=== PATIENT | male | born 1970 | race Caucasian/White ===

== ENCOUNTER 2016-10-11 01:24 | Emergency (ER) | payer OTHER ==
[~2016-10-11] VITALS: Ht 185.4 cm; Wt 91.6 kg
[2016-10-11] MEDS ORDERED: OMEP40CA2 PO (01:41)
[2016-10-11] MEDS ORDERED: DERMABOND TOPICAL SKIN ADHESIVE TOP ONE (02:15)
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
[2016-10-11 03:30] VITALS: BP 118/65
== END 2016-10-11 04:09 | disposition home or self-care (01) ==
LOC: EDBD 01:24 → M ED 03:15
DX: S01.81XA Laceration without foreign body of other part of head, initial encounter (principal); Y04.0XXA Assault by unarmed brawl or fight, initial encounter; Y92.89 Other specified places as the place of occurrence of the external cause; Y93.89 Activity, other specified; Y99.0 Civilian activity done for income or pay

== ENCOUNTER 2017-01-03 22:03 | Emergency (ER) | payer OTHER ==
[~2017-01-03] VITALS: Ht 190.5 cm; Wt 113.6 kg
[2017-01-03 22:03] VITALS: BP 116/72
[~2017-01-03 22:03] MED LIST: OMEP40CA2 PO
[2017-01-03] MEDS ORDERED: FLUORESCEIN OPHTH 1 MG STRIP OD ONE (22:15)
[2017-01-03] MEDS ORDERED: TETRACAINE 0.5% OPHTH SOLN 4ML OU ONE (22:15)
[2017-01-03] MEDS ORDERED: NORCO 5/325MG TABLET (BULK FOR ED) PO ONE (22:45)
[2017-01-03] MEDS ORDERED: CIPROFLOXACIN 0.3% OPHTH SOLN 2.5ML OD ONE (22:45)
== END 2017-01-03 22:49 | disposition home or self-care (01) ==
LOC: M ED 22:03
DX: S05.01XA Injury of conjunctiva and corneal abrasion without foreign body, right eye, initial encounter (principal); Z72.0 Tobacco use; W55.89XA Other contact with other mammals, initial encounter; Y92.099 Unspecified place in other non-institutional residence as the place of occurrence of the external cause; Y93.89 Activity, other specified; Y99.9 Unspecified external cause status

== ENCOUNTER 2018-03-08 20:41 | Emergency (ER) | payer OTHER ==
[2018-03-08 21:17] LABS: BASO # 0.1 10^3/uL (0.0-0.2); BASO % 0.5 % (0.0-1.0); EOS # 0.1 10^3/uL (0.0-0.50); EOS % 0.6 % (0.0-3.0); HEMATOCRIT 40.2 % (42.0-52.0); HEMOGLOBIN 13.7 g/dl (13.5-17.5); IMMATURE GRANULOCYTE % 0.4 % (0-3.0); LYMPH # 2.4 10^3/uL (1.5-4.5); LYMPH % 18.8 % (24.0-44.0); MEAN CORPUSCULAR HEMOGLOBIN 30.3 pg (27.0-33.0); MEAN CORPUSCULAR HGB CONC 34.1 g/dl (32.0-36.5); MEAN CORPUSCULAR VOLUME 88.9 fl (80.0-96.0); MONO # 1.1 10^3/uL (0.0-0.8); MONO % 8.5 % (0.0-5.0); NEUTROPHILS % 71.2 % (36.0-66.0); PLATELET COUNT, AUTOMATED 223 10^3/uL (150-450); RED BLOOD COUNT 4.52 10^6/uL (4.30-6.10); RED CELL DISTRIBUTION WIDTH 13.6 % (11.5-14.5); WHITE BLOOD COUNT 12.6 10^3/uL (4.0-10.0)
[2018-03-08 21:34] LABS: ALBUMIN 3.4 GM/DL (3.2-5.2); ALBUMIN/GLOBULIN RATIO 1.13 (1.00-1.93); ALKALINE PHOSPHATASE 56 U/L (45-117); ALT/SGPT 22 U/L (12-78); ANION GAP 7 MEQ/L (8-16); AST/SGOT 17 U/L (7-37); BILIRUBIN,DIRECT < 0.1 MG/DL (0.0-0.2); BILIRUBIN,TOTAL 0.3 MG/DL (0.2-1.0); BLOOD UREA NITROGEN 11 MG/DL (7-18); CALCIUM LEVEL 7.8 MG/DL (8.5-10.1); CARBON DIOXIDE LEVEL 26 MEQ/L (21-32); CHLORIDE LEVEL 110 MEQ/L (98-107); CPK CREATINE PHOSPHOKINASE 265 U/L (39-308); CREATININE FOR GFR 1.21 MG/DL (0.70-1.30); GLOMERULAR FILTRATION RATE > 60.0 (>60); GLUCOSE, FASTING 85 MG/DL (70-100); LIPASE 198 U/L (73-393); MB/CK RELATIVE INDEX 0.83 (< OR =4); SODIUM LEVEL 143 MEQ/L (136-145); TOTAL PROTEIN 6.4 GM/DL (6.4-8.2)
[2018-03-08 21:43] LABS: INR 0.92; PROTHROMBIN TIME 12.5 SECONDS (12.1-14.4)
[2018-03-08 21:44] LABS: PARTIAL THROMBOPLASTIN TIME 25.8 SECONDS (25.4-37.6)
[2018-03-08] MEDS ORDERED: ISOVUE-370 76% 100ML VIAL (Q9967) As Ordered (21:56)
[2018-03-08] MEDS: NITROGLYCERIN 0.4 MG SUBL TABLET SL (23:09)
[2018-03-09 02:07] LABS: CPK CREATINE PHOSPHOKINASE 419 U/L (39-308); MB/CK RELATIVE INDEX 1.96 (< OR =4); TROPONIN I 2.14 NG/ML (< 0.10)
[2018-03-09] MEDS: CLOPIDOGREL 300 MG TAB (PLAVIX) PO (02:18)
[2018-03-09] MEDS: HEPARIN SOD (PORCINE) 5000 UNITS/ML VIAL IV (02:27)
[2018-03-09] MEDS: HEPARIN DRIP 25,000 UNITS in APPROPRIATE DILUENT 1 EA IV (02:28)
[2018-03-09] MEDS: METOPROLOL TART 25 MG TABLET PO (02:35)
== END 2018-03-09 03:08 | disposition short-term general hospital (02) ==
LOC: M ED 03-09 03:08
DX: I21.4 Non-ST elevation (NSTEMI) myocardial infarction (principal); K21.9 Gastro-esophageal reflux disease without esophagitis; Z72.0 Tobacco use; Z79.899 Other long term (current) drug therapy
CPT/HCPCS: Q9967

== ENCOUNTER 2018-06-02 10:41 | Outpatient (RCR) | payer OTHER ==
--- NOTE | 2018-05-14 13:22 | CARECAPL ---
Assessment Account #s: Initial Assessment General Diagnoses: Stent Allergies: Coded Allergies: No Known Allergies (Unverified , 10/11/16) Date Entered Program: May 14, 2018 Risk strat for cardiac event: Low Exercise Date: May 14, 2018 Assessment: Initial Assessment Exercise Prescription Plan TO EDUCATE AND BUILD STAMINA VIA MONITORED EXERCISE Modalities initiated: Cardio-Strider (METS=2.4/RPE=2), Nustep (METS=2.7/RPE=2), Arm Aerometer (METS=2.7/RPE=2) Frequency: 3 Duration (Minutes) 30-60 minutes total exercise a day. 10-15 work intervals in minutes. 5 MINUTES NEEDED rest intervals in minutes. Functional Capacity Goal Sustained Metabolic Equivalent of a task (MET) goal of 4.75-5.75 for 15-20 minutes. Intensity: 3-Moderate Progression (METS) Increase by: METS every: sessions Angina with ex: No Target Heart Rate +35-40 BASED ON BETA SHOAIB THERAPY Resistance Training: Yes Weight (pounds): 2 Reps: 12-15 Hypertension: Yes Hypertension controlled with: Medication Resting 139/90 Peak Exercise BP 126/90 Medications Scheduled Aspirin (Aspir-81), 81 MG PO DAILY, (Reported) Atorvastatin Calcium (Lipitor), 80 MG PO DAILY, (Reported) Clopidogrel Bisulfate (Clopidogrel), 75 MG PO DAILY, (Reported) Metoprolol Succinate (Metoprolol Succinate ER), 25 MG PO DAILY, (Reported) Omeprazole (Omeprazole), 40 MG PO DAILY, (Reported) Miscellaneous Medications Nitroglycerin (Nitroglycerin), 0.4 MG SL, (Reported) Current BP 108/84 Med Change: No Intervention Home exercise: Type (WALKING/WEIGHTS), Frequency (3-5 TIMES PER WEEK), Duration (30-60 MINUTES) Resistance Training: Yes Education: Self pulse, Ex safety, S/S to report, Low NA diet, BP medication, R PE Scale, Equipment orientation, warm up/cool down, Understand BP, Physical Active Target Goals Individual exercise Rx (1) BP 140/90 or 130/80 if DM or CKD (1) Aerobic active 30+min 5 days per week (1) Nutrition Date: May 14, 2018 Assessment: Initial Assessment Lipid- med/supplement LIPITOR 80 MG DAILY Med Change: No Diabetes Diabetes: No Monitor Blood Sugar at home: No Medication Change: No Blood sugar in range: No Weight Management Weight (lbs): 198.8 Height (inches): 73 Waist Circumference (Inches): 43 BMI: 27.7 Special Diet: low salt, low-fat Alcohol: special Alcohol Type: beer (MAYBE 6 PACK A YEAR) Diet Access Tool: Rate your plate Score: 54 Current Weight (pounds): 198.8 Intervention Reset Merchandiser Consult: No Nurse/patient discussion: Yes Diet Class: Yes Referral to Diabetes education: No Referral to lipid clinic: No Referral to weight mangement p: No Education Eating Healthy Target goal LDL-C<100 if triglycerides are >200 Non-HDL-C should be <130 (1) LDL-C<70 for high risk patients (4) HbA1c<7% (1) BMI<25 Waist cir<40in M/<35in F (1) Education Date: May 14, 2018 Assessment: Initial Assessment Learning Barriers: ready Knowledge Test Score: 10 Family Support: Yes Tobacco use: Yes Tobacco Use Quit set date: Jun 08, 2018 Cigarettes smoked per day: 6 (HAS CUT DOWN, PLANS TO QUIT 06/08/18) Smokeless tobacco: No Intervention Referral to smoking cessation: No Individual education and couns: Yes Tobacco Adjunct: No Education class schedule given: No Attended education classes: No Education: tobacco triggers, CAD, Risk factors, med compliance, cardiac A&P, Angina S/S, Sexuality Target Goals Complete cessation of tobacco use (1). Psychosocial Date: May 14, 2018 Assessment: Initial Assessment Psych Test (Initial/Discharge) Tool Used: CESD Score: 3 Intervention Physician Consult: No Physician Referral: No Med Change: No Stress Management Class: No Uses Stress Management Skills: Yes Education Education: Coping Techniques, S/S depression, Relaxation Techniques Target Goal Assess presence or absence of depression using a valid screening tool (1). Maximize coping skills (2). Positive support system (2). Patient/Program Goal Preventative Medication: Yes Aspirin, Yes Clopidogrel, Yes Beta blockade, Yes Statin/OTR lipid Lowering Fall Risk Assess: Yes (NOT FALL RISK) Provider Assessment Session Number: 1 Jerel Novoa RN May 14, 2018 13:22
[~2018-06-02 10:41] MED LIST changes: +ASPI81TA85 PO; +CLOP75TA2 PO; +LIPI80TA PO; +METO1TAB32 PO; +NITR0.4S14 SL
== END 2018-06-07 ==
LOC: M CR 10:41
PROVIDERS: ATTEND Internal Medicine Cardiovascular Disease
DX: I25.2 Old myocardial infarction (principal); Z95.5 Presence of coronary angioplasty implant and graft

== ENCOUNTER 2018-07-05 15:02 | Outpatient (RCR) | payer OTHER ==
--- NOTE | 2018-06-10 14:01 | CARECAPL ---
Assessment Account #s: Re-Assessment I General Diagnoses: Stent Date of event: Mar 09, 2018 Physician: Gorge Brizuela Allergies: Coded Allergies: No Known Allergies (Unverified , 10/11/16) Date Entered Program: May 14, 2018 Risk strat for cardiac event: Low Exercise Date: Jun 10, 2018 Assessment: Re-Assessment I Exercise Prescription Modalities initiated: Treadmill, Cardio-Strider, Nustep, Arm Aerometer, Dumbells, Recumbent Bike Duration (Minutes) minutes total exercise a day. work intervals in minutes. rest intervals in minutes. Functional Capacity Goal Sustained Metabolic Equivalent of a task (MET) goal of for minutes. Progression (METS) Increase by: METS every: sessions Angina with ex: No Weight (pounds): 3 Reps: 8-12 Medications Scheduled Aspirin (Aspir-81), 81 MG PO DAILY, (Reported) Atorvastatin Calcium (Lipitor), 80 MG PO DAILY, (Reported) Clopidogrel Bisulfate (Clopidogrel), 75 MG PO DAILY, (Reported) Metoprolol Succinate (Metoprolol Succinate ER), 25 MG PO DAILY, (Reported) Omeprazole (Omeprazole), 40 MG PO DAILY, (Reported) Miscellaneous Medications Nitroglycerin (Nitroglycerin), 0.4 MG SL, (Reported) Current BP 114/82 Med Change: No Intervention Home exercise: Type (join local gym, walking, hand weights), Frequency (4-6 times per week), Duration (30-60 minutes) Resistance Training: Yes Education: Self pulse, Ex safety, S/S to report, Low NA diet, BP medication, RPE Scale, Equipment orientation, warm up/cool down, Understand BP, Physical Active Education Goals Met: Yes Target Goals Individual exercise Rx (1) BP 140/90 or 130/80 if DM or CKD (1) Aerobic active 30+min 5 days per week (1) Nutrition Date: Jun 10, 2018 Assessment: Re-Assessment I Med Change: No Current Weight (pounds): 198 Weight Goal to maintain Intervention Serger Consult: Yes Nurse/patient discussion: Yes Education Eating Healthy Education Goals Met: Yes Target goal LDL-C<100 if triglycerides are >200 Non-HDL-C should be <130 (1) LDL-C<70 for high risk patients (4) HbA1c<7% (1) BMI<25 Waist cir<40in M/<35in F (1) Education Date: Jun 10, 2018 Assessment: Re-Assessment I Intervention Education: CAD, Risk factors, med compliance, cardiac A&P, Angina S/S, Sexuality Education Goals Met: Yes Target Goals Complete cessation of tobacco use (1). Psychosocial Date: Jun 10, 2018 Assessment: Re-Assessment I Stress Management Class: Yes Uses Stress Management Skills: Yes Education Education: Coping Techniques, S/S depression, Relaxation Techniques Education Goals Met: Yes Target Goal Assess presence or absence of depression using a valid screening tool (1). Maximize coping skills (2). Positive support system (2). Provider Assessment Session Number: 5 Provider Assessment: No changes Karishma José RN Jun 10, 2018 14:01
--- NOTE | 2018-07-07 14:28 | CARECAPL ---
Assessment Account #s: Re-Assessment II General Diagnoses: Stent Date of event: Mar 09, 2018 Physician: Gorge Brizuela Allergies: Coded Allergies: No Known Allergies (Unverified , 10/11/16) Date Entered Program: May 14, 2018 Risk strat for cardiac event: Low Exercise Date: Jul 07, 2018 Assessment: Re-Assessment II Exercise Prescription Modalities initiated: Treadmill, Cardio-Strider, Nustep, Arm Aerometer, Dumbells, Recumbent Bike Frequency: 1-2 Duration (Minutes) 6-15minutes total exercise a day. 30-60 work intervals in minutes. rest intervals in minutes. Functional Capacity Goal Sustained Metabolic Equivalent of a task (MET) goal of for minutes. Intensity: 3-Moderate Progression (METS) Increase by: METS every: sessions Angina with ex: No Weight (pounds): 3 Reps: 8-12 Medications Scheduled Aspirin (Aspir-81), 81 MG PO DAILY, (Reported) Atorvastatin Calcium (Lipitor), 80 MG PO DAILY, (Reported) Clopidogrel Bisulfate (Clopidogrel), 75 MG PO DAILY, (Reported) Metoprolol Succinate (Metoprolol Succinate ER), 25 MG PO DAILY, (Reported) Omeprazole (Omeprazole), 40 MG PO DAILY, (Reported) Miscellaneous Medications Nitroglycerin (Nitroglycerin), 0.4 MG SL, (Reported) Current BP 120/80 Med Change: No Intervention Home exercise: Type (walking, join local gym, hand weights), Frequency (5-7), Duration (30-60 minutes) Resistance Training: Yes Education: Self pulse, Ex safety, S/S to report, Low NA diet, BP medication, RPE Scale, Equipment orientation, warm up/cool down, Understand BP, Physical Active Education Goals Met: Yes Target Goals Individual exercise Rx (1) BP 140/90 or 130/80 if DM or CKD (1) Aerobic active 30+min 5 days per week (1) Nutrition Date: Jul 07, 2018 Assessment: Re-Assessment II Medication Change: No Current Weight (pounds): 198 Intervention Nurse/patient discussion: Yes Dietary Goals better choices Education Eating Healthy Target goal LDL-C<100 if triglycerides are >200 Non-HDL-C should be <130 (1) LDL-C<70 for high risk patients (4) HbA1c<7% (1) BMI<25 Waist cir<40in M/<35in F (1) Education Date: Jul 07, 2018 Assessment: Re-Assessment II Intervention Education class schedule given: Yes Attended education classes: Yes Education: CAD, Risk factors, med compliance, cardiac A&P, Angina S/S, Sexuality Target Goals Complete cessation of tobacco use (1). Psychosocial Date: Jul 07, 2018 Assessment: Re-Assessment II Med Change: No Stress Management Class: Yes Uses Stress Management Skills: Yes Education Education: Coping Techniques, S/S depression, Relaxation Techniques Target Goal Assess presence or absence of depression using a valid screening tool (1). Maximize coping skills (2). Positive support system (2). Provider Assessment Session Number: 7 Provider Assessment: No changes Karishma José RN Jul 07, 2018 14:28
== END 2018-07-08 ==
LOC: M CR 15:02
PROVIDERS: ATTEND Internal Medicine Cardiovascular Disease
DX: Z95.5 Presence of coronary angioplasty implant and graft (principal)

== ENCOUNTER 2018-07-16 08:55 | Outpatient (RCR) | payer OTHER | END 2018-08-05 | LOC: M CR 08:55 | PROVIDERS: ATTEND Internal Medicine Cardiovascular Disease | DX: Z95.5 Presence of coronary angioplasty implant and graft (principal) ==

== ENCOUNTER 2018-07-24 00:02 | Emergency (ER) | payer OTHER ==
[~2018-07-24] VITALS: Ht 185.4 cm; Wt 91.8 kg
[2018-07-24 00:10] VITALS: BP 131/86
[2018-07-24 00:31] LABS: CARBOXYHEMOGLOBIN 4.8 % (0.0-1.5); VENOUS BASE EXCESS 2.4 (-2.0-2.0); VENOUS HCO3 29.7 MEQ/L (23.0-27.0); VENOUS O2 SATURATION 51.5 % (60.0-80.0); VENOUS PARTIAL PRESSURE CO2 56.5 mmHg (38.0-50.0); VENOUS PARTIAL PRESSURE O2 29.3 mmHg (30.0-50.0); VENOUS PH 7.339 UNITS (7.330-7.430); VENOUS STANDARD HCO3 25.3 MEQ/L; VENOUS TOTAL CO2 31.5 MEQ/L (24.0-28.0)
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
== END 2018-07-24 01:13 | disposition home or self-care (01) ==
LOC: M ED 00:02 → EDBD 00:02 → M ED 01:13
DX: J70.5 Respiratory conditions due to smoke inhalation (principal); I25.10 Atherosclerotic heart disease of native coronary artery without angina pectoris; I25.2 Old myocardial infarction; Z79.899 Other long term (current) drug therapy; Z79.82 Long term (current) use of aspirin; F17.210 Nicotine dependence, cigarettes, uncomplicated

== ENCOUNTER → 2018-12-14 | Outpatient (CLI) | payer OTHER ==
[~2018-12-14] MED LIST changes: +E-Z-GAS II EFFERVESCENT PACKET (SODIUM BICARB./CITRIC ACID/SIMETHICONE) As Ordered ONE; +E-Z-HD 98% w/w 340GM SUSP BTL As Ordered ONE; +E-Z-PAQUE 96% w/w SUSP 176GM BTL As Ordered ONE
--- NOTE | 2018-12-15 20:35 | REP ---
Examination Requested: Esophagram Barium Swallow Reason For Exam/Comment: Dysphasia, gastroesophageal reflux disease Esophagram: The procedure was performed ABEBA Truong, under the direct supervision of Dr. Lockhart. The images were reviewed with Dr. Lockhart. A single PA chest x-ray is submitted as a r d intern film. The superior mediastinal structures are midline. The heart size is within normal limits. The lungs are clear. Liquid barium and gas producing granules were given in the erect position as well as liquid barium in the prone oblique position, in order to perform a double contrast esophagram examination. Oral and pharyngeal stages of the examination were unremarkable. Esophageal transport is efficient and there is no esophagitis, stricture, or mucosal ring noted. During the course of the exam a small amount of barium was noted along the anterior aspect of the trachea, indicating the patient aspirated barium during the exam without a cough response. There is a hiatal hernia noted. Gastroesophageal reflux as visualized to the level of the chente. Impression: 1. Aspiration without a cough response. 2. Hiatal hernia. 3. Gastroesophageal reflux to the level of the chente. 0.8 minutes of fluoroscopy time was utilized for this procedure. Some fluoroscopic images are performed with last image hold technology. These images require no additional radiation. Reviewed by ABEBA Arreola 12/14/2018 04:36 P Electronically Signed by Ethan Lockhart MD 12/15/2018 08:26 P
== END ==
LOC: M RAD 08:42
PROVIDERS: ATTEND Physician Assistant Medical
DX: R13.10 Dysphagia, unspecified (principal); K21.9 Gastro-esophageal reflux disease without esophagitis

== ENCOUNTER 2019-03-04 12:46 | Day surgery (SDC) | payer OTHER ==
[~2019-03-04] VITALS: Ht 185.4 cm; Wt 91.1 kg
[~2019-03-04 12:46] MED LIST changes: +CHAN1PAK13 PO; -E-Z-GAS II EFFERVESCENT PACKET (SODIUM BICARB./CITRIC ACID/SIMETHICONE) As Ordered ONE; -E-Z-HD 98% w/w 340GM SUSP BTL As Ordered ONE; -E-Z-PAQUE 96% w/w SUSP 176GM BTL As Ordered ONE; +NS 1,000 ML IV ONE
[2019-03-04] MEDS ORDERED: PROPOFOL 200 MG/20 ML VIAL As Ordered ONE (13:43)
[2019-03-04] MEDS ORDERED: LIDOCAINE 2% INJ 100 MG/5 ML SDV (FOR ANES.) As Ordered ONE (13:43)
--- NOTE | 2019-03-04 14:00 | ROOR ---
Patient Name: Arnol Rosa Procedure Date: 03/04/2019 1:46 PM Date of : 1970 Age: 48 Room: [facility] Gender: Male Note Status: Finalized Procedure: Upper GI endoscopy Indications: Dysphagia, Heartburn, Failure to respond to medical treatment Providers: Dannie FREEMAN MD Referring MD: ANTONIO BRANDT JR, MD Requesting Provider: Medicines: Monitored Anesthesia Care Complications: No immediate complications. Procedure: Pre-Anesthesia Assessment: - The heart rate, respiratory rate, oxygen saturations, blood pressure, adequacy of pulmonary ventilation, and response to care were monitored throughout the procedure. The Endoscope was introduced through the mouth, and advanced to the second part of duodenum. The upper GI endoscopy was accomplished without difficulty. The patient tolerated the procedure well. Findings: Non-severe esophagitis was found in the lower third of the esophagus. A medium-sized hiatal hernia was present. The entire examined stomach was normal. The examined duodenum was normal. Impression: - Mild reflux esophagitis. GE junction at 35 cm. - Medium-sized hiatal hernia. - Normal stomach. - Normal examined duodenum. - No specimens collected. Recommendation: - Continue present medications. - As Pantoprazole appears to be ineffective, We will need to consider returning to Omeprazole 40 mg twice a day. (alternatively a trial on Dexilant may be considered) --To be discussed. - My office will call you in next few days with results of discussion. Dannie Freeman MD Dannie FREEMAN MD 03/04/2019 2:00:14 PM Electronically signed by Dannie FREEMAN MD Number of Addenda: 0 Note Initiated On: 03/04/2019 1:46 PM Estimated Blood Loss: Estimated blood loss: none.
[2019-03-04 14:20] VITALS: BP 105/71
== END 2019-03-04 14:41 | disposition home or self-care (01) ==
LOC: M OPP 12:46
PROVIDERS: ATTEND Internal Medicine Gastroenterology
DX: K20.9 Esophagitis, unspecified (principal); K44.9 Diaphragmatic hernia without obstruction or gangrene; R12 Heartburn; R13.10 Dysphagia, unspecified; F17.210 Nicotine dependence, cigarettes, uncomplicated; I25.2 Old myocardial infarction; Z79.82 Long term (current) use of aspirin; Z79.899 Other long term (current) drug therapy; Z95.5 Presence of coronary angioplasty implant and graft

== ENCOUNTER 2020-01-13 09:45 | Day surgery (SDC) | payer OTHER ==
[~2020-01-13 09:45] MED LIST changes: -ASPI81TA85 PO; +ASPI81TA86 PO; -NS 1,000 ML IV ONE; -OMEP40CA2 PO; +OMEP40CA97 PO
[2020-01-13] MEDS ORDERED: LIDOCAINE 2% 100MG/5ML SDV (FOR ANES.) As Ordered ONE (10:07)
[2020-01-13] MEDS ORDERED: propofoL 200 MG/20 ML VIAL As Ordered ONE (10:07)
[2020-01-13] MEDS ORDERED: GLUCAGON INJ 1MG VIAL As Ordered ONE (10:55)
--- NOTE | 2020-02-15 11:28 | ROOR ---
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 Procedure: Pre-Anesthesia Assessment: - The heart rate, respiratory rate, oxygen saturations, blood pressure, adequacy of pulmonary ventilation, and response to care were monitored throughout the procedure. The Colonoscope was introduced through the anus and advanced to the cecum, identified by appendiceal orifice and ileocecal valve. The colonoscopy was performed without difficulty. The patient tolerated the procedure well. The quality of the bowel preparation was good. Findings: The perianal and digital rectal examinations were normal. Five sessile polyps were found in the rectum, sigmoid colon and hepatic flexure. The polyps were diminutive in size. These polyps were removed with a cold snare. Resection and retrieval were complete. A 8 mm polyp was found in the mid sigmoid colon. The polyp was semi-sessile. The polyp was removed with a hot snare. Resection and retrieval were complete. To prevent bleeding after the polypectomy, one hemostatic clip was successfully placed. Mild sigmoid diverticulosis and small internal hemorrhoids. Impression: - Five diminutive polyps in the rectum, in the sigmoid colon and at the hepatic flexure, removed with a cold snare. Resected and retrieved. - One 8 mm polyp in the mid sigmoid colon, removed with a hot snare. Resected and retrieved. Clip was placed. - Mild sigmoid diverticulosis and small internal hemorrhoids. Recommendation: - Repeat colonoscopy in 3 years for surveillance. - Resume Plavix (clopidogrel) at prior dose in 3 days. (Thursday01/16/20) Dannie Freeman MD Dannie FREEMAN MD 01/13/2020 11:24:19 AM Number of Addenda: 0 Note Initiated On: 01/13/2020 10:01 AM Estimated Blood Loss: Estimated blood loss: none.
== END 2020-01-13 11:56 | disposition home or self-care (01) ==
LOC: M SDC 09:45
PROVIDERS: ATTEND Internal Medicine Gastroenterology
DX: Z12.11 Encounter for screening for malignant neoplasm of colon (principal); K62.1 Rectal polyp; D12.3 Benign neoplasm of transverse colon; K57.30 Diverticulosis of large intestine without perforation or abscess without bleeding; K64.8 Other hemorrhoids; K21.9 Gastro-esophageal reflux disease without esophagitis; Z79.01 Long term (current) use of anticoagulants; Z79.82 Long term (current) use of aspirin; Z79.899 Other long term (current) drug therapy
CPT/HCPCS: 45385; 88305; J1610

== ENCOUNTER 2020-10-30 18:27 | Emergency (ER) | payer OTHER ==
[~2020-10-30] VITALS: Ht 185.4 cm; Wt 91.8 kg
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
[2020-10-30 19:51] LABS: BASO # 0.1 10^3/uL (0.0-0.2); BASO % 0.6 % (0.0-1.0); EOS # 0.1 10^3/uL (0.0-0.5); EOS % 1.5 % (0.0-3.0); HEMATOCRIT 42.3 % (42.0-52.0); HEMOGLOBIN 14.1 g/dl (13.5-17.5); LYMPH # 3.6 10^3/uL (1.5-5.0); LYMPH % 38.5 % (24.0-44.0); MEAN CORPUSCULAR HEMOGLOBIN 29.6 pg (27.0-33.0); MEAN CORPUSCULAR HGB CONC 33.3 g/dl (32.0-36.5); MEAN CORPUSCULAR VOLUME 88.9 fl (80.0-96.0); MONO # 0.9 10^3/uL (0.0-0.8); MONO % 9.8 % (2.0-8.0); NEUTROPHILS # 4.6 10^3/uL (1.5-8.5); NEUTROPHILS % 49.3 % (36.0-66.0); PLATELET COUNT, AUTOMATED 241 10^3/uL (150-450); RED BLOOD COUNT 4.76 10^6/uL (4.30-6.10); WHITE BLOOD COUNT 9.4 10^3/uL (4.0-10.0)
[2020-10-30 21:08] LABS: ALBUMIN 3.9 GM/DL (3.2-5.2); ALT/SGPT 27 U/L (12-78); BILIRUBIN,DIRECT 0.2 MG/DL (0.0-0.2); BILIRUBIN,TOTAL 0.5 MG/DL (0.2-1.0); BLOOD UREA NITROGEN 11 MG/DL (7-18); CALCIUM LEVEL 9.1 MG/DL (8.5-10.1); CARBON DIOXIDE LEVEL 25 MEQ/L (21-32); CHLORIDE LEVEL 111 MEQ/L (98-107); CK-MB VALUE MASS 2.4 NG/ML (<3.6); CPK CREATINE PHOSPHOKINASE 485 U/L (39-308); CREATININE FOR GFR 1.07 MG/DL (0.70-1.30); GLOMERULAR FILTRATION RATE > 60.0 (>56); GLUCOSE, FASTING 88 MG/DL (70-100); LIPASE 119 U/L (73-393); MB/CK RELATIVE INDEX 0.49 (< OR =4); SODIUM LEVEL 142 MEQ/L (136-145); TOTAL PROTEIN 6.7 GM/DL (6.4-8.2); TROPONIN I < 0.02 NG/ML (< 0.10)
[2020-10-30] MEDS ORDERED: ISOVUE-370 76% 100ML VIAL As Ordered ONE (21:15)
--- NOTE | 2020-10-30 21:41 | ECGEPIP ---
[facility] - ED Test Date: 2020-10-30 Pat Name: DEWAYNE PEREZ Department: Room: - Gender: Male Rn Informatics: : 1970 Requested By: YOMI Lyles Order Number: [id number] Reading MD: Isabel Cornejo Measurements Intervals [place] Rate: 78 P: -3 ME: 150 QRS: 15 QRSD: 78 T: 16 QT: 360 QTc: 410 Interpretive Statements Normal sinus rhythm with sinus arrhythmia delayed r progression increased rate 03/09/18 Electronically Signed on 10-30-2020 21:40:53 EDT by Isabel Cornejo
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
[2020-10-30 23:00] VITALS: BP 126/75
== END 2020-10-30 23:09 | disposition home or self-care (01) ==
LOC: M ED 18:27
DX: S20.212A Contusion of left front wall of thorax, initial encounter (principal); W22.8XXA Striking against or struck by other objects, initial encounter; Y92.89 Other specified places as the place of occurrence of the external cause; I25.10 Atherosclerotic heart disease of native coronary artery without angina pectoris; Z79.899 Other long term (current) drug therapy; Z79.82 Long term (current) use of aspirin; Z79.01 Long term (current) use of anticoagulants; F17.210 Nicotine dependence, cigarettes, uncomplicated
CPT/HCPCS: 36415; 71101; 71260; 74177; 80048; 80076; 82550; 82553; 83690; 84484; 85025; 93005; 99284; Q9967

== ENCOUNTER 2020-12-05 18:28 | Emergency (ER) | payer OTHER ==
[~2020-12-05] VITALS: Ht 185.4 cm; Wt 91.3 kg
[~2020-12-05 18:28] MED LIST changes: +OMEP40CA4 PO; -OMEP40CA97 PO
[2020-12-05] MEDS ORDERED: methocarbamoL 750 MG TAB PO ONE (20:15)
[2020-12-05] MEDS ORDERED: NAPROXEN 250 MG TAB PO ONE (20:15)
[2020-12-05] MEDS ORDERED: METH-1164 PO (20:22)
[2020-12-05] MEDS ORDERED: NAPR-837 PO (20:22)
[2020-12-05 20:53] VITALS: BP 122/72
== END 2020-12-05 20:54 | disposition home or self-care (01) ==
LOC: M ED 18:28
DX: M54.5 Low back pain (principal); Z79.899 Other long term (current) drug therapy; Z79.82 Long term (current) use of aspirin; Z79.01 Long term (current) use of anticoagulants

== ENCOUNTER → 2022-03-12 | Outpatient (REF) | payer OTHER ==
[~2022-03-12] MED LIST changes: +METH-1164 PO; +NAPR-837 PO
[2022-03-12 13:48] LABS: APPEARANCE, URINE MANUAL CLEAR (CLEAR); BILIRUBIN, URINE MANUAL NEGATIVE (NEGATIVE); COLOR, URINE MANUAL YELLOW (YELLOW); GLUCOSE, URINE (UA) MANUAL NEGATIVE (NEGATIVE); KETONE, URINE MANUAL NEGATIVE (NEGATIVE); LEUKOCYTE ESTERASE, URINE MAN NEGATIVE (NEGATIVE); NITRITE, URINE MANUAL NEGATIVE (NEGATIVE); PROTEIN, URINE MANUAL TRACE mg/dL (NEGATIVE); UROBILINOGEN, URINE MANUAL NORMAL (NORMAL)
[2022-03-12 13:49] LABS: BLOOD URINE MANUAL NEGATIVE (NEGATIVE)
[2022-03-12 14:14] LABS: BACTERIA, URINE MOD AMOUNT; MUCUS, URINE MOD AMOUNT (NEGATIVE)
[2022-03-12 14:15] LABS: HYALINE CAST, URINE NONE SEEN /lpf (0-1); RBC, URINE NONE SEEN /hpf (0-3); SQUAMOUS EPITHELIAL CELL URINE NONE SEEN /hpf (SMALL AMT); WBC, URINE 0-1 /hpf (0-3)
== END ==
LOC: M SMT 13:05
PROVIDERS: ATTEND Nurse Practitioner Women's Health
DX: R35.0 Frequency of micturition (principal)

== ENCOUNTER → 2022-03-18 | Outpatient (CLI) | payer OTHER | LOC: M WUC 15:40 | PROVIDERS: ATTEND Nurse Practitioner Women's Health | DX: R97.20 Elevated prostate specific antigen [PSA] (principal) ==

== ENCOUNTER → 2022-04-01 | Outpatient (REF) | payer OTHER | LOC: M SMT 13:01 | PROVIDERS: ATTEND Urology | DX: C61 Malignant neoplasm of prostate (principal) ==

== ENCOUNTER → 2022-06-19 | Outpatient (CLI) | payer OTHER ==
[~2022-06-19] MED LIST changes: +ALLE4TAB11 PO; +BAYE81TA10 PO; +FLOM0.4C39 PO; +MELA3TAB30 PO
[2022-06-19 16:47] LABS: BLOOD UREA NITROGEN 13 MG/DL (9-23); CARBON DIOXIDE LEVEL 30 MMOL/L (20-31); CHLORIDE LEVEL 104 MMOL/L (98-107); CREATININE FOR GFR 1.17 MG/DL (0.70-1.30); GLOMERULAR FILTRATION RATE > 60.0 (>56); GLUCOSE, FASTING 112 MG/DL (60-100); POTASSIUM SERUM 3.7 MMOL/L (3.5-5.1); SODIUM LEVEL 140 MMOL/L (136-145)
[2022-06-19 16:56] LABS: HEMATOCRIT 44.7 % (42.0-52.0); HEMOGLOBIN 14.7 g/dl (13.5-17.5); MEAN CORPUSCULAR HEMOGLOBIN 30.1 pg (27.0-33.0); MEAN CORPUSCULAR HGB CONC 32.9 g/dl (32.0-36.5); MEAN CORPUSCULAR VOLUME 91.6 fl (80.0-96.0); PLATELET COUNT, AUTOMATED 241 10^3/uL (150-450); RED BLOOD COUNT 4.88 10^6/uL (4.30-6.10); WHITE BLOOD COUNT 10.8 10^3/uL (4.0-10.0)
[2022-06-19 17:08] LABS: INR 0.99; PARTIAL THROMBOPLASTIN TIME 27.8 SECONDS (24.8-34.2); PROTHROMBIN TIME 13.3 SECONDS (12.5-14.5)
== END ==
LOC: M WUC 11:59
PROVIDERS: ATTEND Urology
DX: Z01.818 Encounter for other preprocedural examination (principal); C61 Malignant neoplasm of prostate; N39.0 Urinary tract infection, site not specified; K44.9 Diaphragmatic hernia without obstruction or gangrene

== ENCOUNTER 2022-06-20 19:50 | Emergency (ER) | payer OTHER ==
[~2022-06-20] VITALS: Ht 185.4 cm; Wt 91.8 kg
[2022-06-20] MEDS ORDERED: NITROGLYCERIN 0.4MG SUBL TABLET SL PRN (20:20)
[2022-06-20] MEDS ORDERED: ASPIRIN 81MG CHEW TABLET PO ONE (20:20)
[2022-06-20 20:36] VITALS: BP 115/72
[2022-06-20 20:56] LABS: BASO # 0.1 10^3/uL (0.0-0.2); BASO % 0.5 % (0.0-1.0); EOS # 0.1 10^3/uL (0.0-0.5); EOS % 1.2 % (0.0-3.0); HEMOGLOBIN 14.3 g/dl (13.5-17.5); LYMPH # 3.8 10^3/uL (1.5-5.0); MEAN CORPUSCULAR HEMOGLOBIN 29.7 pg (27.0-33.0); MEAN CORPUSCULAR HGB CONC 33.3 g/dl (32.0-36.5); MEAN CORPUSCULAR VOLUME 89.4 fl (80.0-96.0); MONO # 0.7 10^3/uL (0.0-0.8); MONO % 6.1 % (2.0-8.0); NEUTROPHILS # 7.1 10^3/uL (1.5-8.5); NEUTROPHILS % 59.9 % (36.0-66.0); PLATELET COUNT, AUTOMATED 226 10^3/uL (150-450); RED BLOOD COUNT 4.81 10^6/uL (4.30-6.10); WHITE BLOOD COUNT 11.8 10^3/uL (4.0-10.0)
[2022-06-20 21:07] LABS: INR 0.97; PROTHROMBIN TIME 13.1 SECONDS (12.5-14.5)
[2022-06-20 21:08] LABS: PARTIAL THROMBOPLASTIN TIME 27.7 SECONDS (24.8-34.2)
[2022-06-20] MEDS ORDERED: MORPHINE 2 MG/ML 1ML VIAL IV ONE (21:20)
[2022-06-20 21:21] LABS: CK-MB VALUE MASS < 1.0 NG/ML (<3.6)
[2022-06-20 21:22] LABS: LIPASE 44 U/L (12-53)
[2022-06-20 21:23] LABS: BILIRUBIN,DIRECT 0.1 MG/DL (<0.4)
[2022-06-20 21:25] LABS: THYROID STIMULATING HORMONE 1.725 uIU/ML (0.55-4.78)
[2022-06-20 21:26] LABS: FREE T4 0.94 NG/DL (0.89-1.76)
[2022-06-20 21:28] LABS: ALBUMIN 3.7 G/DL (3.2-5.2); ALKALINE PHOSPHATASE 82 U/L (46-116); ALT/SGPT 23 U/L (7.0-40); AST/SGOT 27 U/L (<34); BILIRUBIN,TOTAL 0.4 MG/DL (0.3-1.2); BLOOD UREA NITROGEN 12 MG/DL (9-23); CALCIUM LEVEL 8.6 MG/DL (8.5-10.1); CARBON DIOXIDE LEVEL 25 MMOL/L (20-31); CHLORIDE LEVEL 108 MMOL/L (98-107); CPK CREATINE PHOSPHOKINASE 135 U/L (46-171); CREATININE FOR GFR 1.06 MG/DL (0.70-1.30); GLOMERULAR FILTRATION RATE > 60.0 (>56); GLUCOSE, FASTING 97 MG/DL (60-100); MB/CK RELATIVE INDEX 0.74 (< OR =4); POTASSIUM SERUM 4.8 MMOL/L (3.5-5.1); SODIUM LEVEL 139 MMOL/L (136-145); TOTAL PROTEIN 6.1 G/DL (5.7-8.2)
[2022-06-20] MEDS ORDERED: ISOVUE-370 76% 100ML VIAL As Ordered ONE (21:50)
[2022-06-20 22:11] LABS: CK-MB VALUE MASS < 1.0 NG/ML (<3.6)
[2022-06-20 22:14] LABS: CPK CREATINE PHOSPHOKINASE 121 U/L (46-171); MB/CK RELATIVE INDEX 0.82 (< OR =4)
[2022-06-20] MEDS ORDERED: GI COCKTAIL 50ML BTL(HYOSCYAMINE/MAALOX/LIDOCAINE VISCOUS)(1:3:1) PO ONE (22:15)
[2022-06-20 23:50] VITALS: BP 107/70
== END 2022-06-21 00:01 | disposition home or self-care (01) ==
LOC: M ED 19:50
DX: K44.9 Diaphragmatic hernia without obstruction or gangrene (principal); I25.10 Atherosclerotic heart disease of native coronary artery without angina pectoris; K21.9 Gastro-esophageal reflux disease without esophagitis; F17.210 Nicotine dependence, cigarettes, uncomplicated; Z79.01 Long term (current) use of anticoagulants; Z79.82 Long term (current) use of aspirin; Z79.899 Other long term (current) drug therapy; Z95.5 Presence of coronary angioplasty implant and graft

== ENCOUNTER → 2022-06-29 | Outpatient (CLI) | payer OTHER | LOC: M LABSMTC 11:15 | PROVIDERS: ATTEND Anesthesiology | DX: Z01.812 Encounter for preprocedural laboratory examination (principal); Z11.52 Encounter for screening for COVID-19 ==

== ENCOUNTER 2022-07-02 07:30 | Inpatient (IN) | payer OTHER ==
[~2022-07-02] VITALS: Ht 185.4 cm; Wt 89.4 kg
[~2022-07-02 07:30] MED LIST changes: +ceFAZolin SOD 2 GM in IV 1 EA IV ONE
[2022-07-02] MEDS ORDERED: fentaNYL 100 MCG/2 ML INJECTION As Ordered ONE (08:35)
[2022-07-02] MEDS ORDERED: MIDAZOLAM INJ 2MG/2ML VIAL As Ordered ONE (08:35)
[2022-07-02] MEDS ORDERED: HYDROmorphone HCL 2MG/ML 1ML VIAL As Ordered ONE (08:35)
[2022-07-02] MEDS ORDERED: ONDANSETRON 4MG 2ML VIAL As Ordered ONE (08:55)
[2022-07-02] MEDS ORDERED: propofoL 200 MG/20 ML VIAL As Ordered ONE ×2 (08:55→13:22)
[2022-07-02] MEDS ORDERED: LIDOCAINE 2% 100MG/5ML SDV (FOR ANES.) As Ordered ONE (08:55)
[2022-07-02] MEDS ORDERED: ROCURONIUM BROMIDE 50MG/5ML VIAL As Ordered ONE ×2 (08:55→14:47)
[2022-07-02] MEDS ORDERED: LR 1,000 ML IV SCH (11:10)
[2022-07-02] MEDS ORDERED: HOME MED LIST COMPLETE! XX SCH (11:15)
[2022-07-02] MEDS ORDERED: HEPARIN SOD (PORCINE) 5000UNITS/ML 1ML VIAL/SYRINGE SQ ONE (11:30)
[2022-07-02] MEDS ORDERED: BUPIVACAINE HCL 0.25% 30ML VIAL As Ordered ONE (12:32)
[2022-07-02] MEDS ORDERED: LIDOCAINE 1% SDV 30ML VIAL As Ordered ONE (12:32)
[2022-07-02] MEDS ORDERED: PERCOCET 5MG/325MG TAB PO PRN (12:55)
[2022-07-02] MEDS ORDERED: ONDANSETRON 4MG 2ML VIAL IV PRN ×2 (12:55→16:40)
[2022-07-02] MEDS ORDERED: ACETAMINOPHEN TAB 650MG DOSE (2X325MG) PO PRN (12:55)
[2022-07-02] MEDS ORDERED: ACETAMINOPHEN 1000MG 100ML IV BAG As Ordered ONE (13:01)
[2022-07-02] MEDS ORDERED: GLYCOPYRROLATE INJ 0.2 MG/ML 2 ML VIAL As Ordered ONE (13:29)
[2022-07-02] MEDS ORDERED: SUGAMMADEX SODIUM 500 MG/5 ML VIAL (BRIDION) As Ordered ONE (13:33)
[2022-07-02] MEDS ORDERED: fentaNYL 100 MCG/2 ML INJECTION IV PRN (16:40)
[2022-07-02] MEDS: oxyCODONE 5MG TAB PO PRN ×2 (17:19→17:50)
[2022-07-02] MEDS ORDERED: KETOROLAC 30 MG/ML 1ML VIAL As Ordered ONE (17:24)
[2022-07-02] MEDS ORDERED: KETOROLAC 30 MG/ML 1ML VIAL IV ONE (17:25)
[2022-07-02 17:29] LABS: HEMATOCRIT 42.6 % (42.0-52.0); HEMOGLOBIN 13.9 g/dl (13.5-17.5); MEAN CORPUSCULAR HEMOGLOBIN 29.7 pg (27.0-33.0); MEAN CORPUSCULAR HGB CONC 32.6 g/dl (32.0-36.5); PLATELET COUNT, AUTOMATED 238 10^3/uL (150-450); RED BLOOD COUNT 4.68 10^6/uL (4.30-6.10); WHITE BLOOD COUNT 12.8 10^3/uL (4.0-10.0)
[2022-07-02 17:58] LABS: BLOOD UREA NITROGEN 14 MG/DL (9-23); CALCIUM LEVEL 8.3 MG/DL (8.5-10.1); CARBON DIOXIDE LEVEL 26 MMOL/L (20-31); CHLORIDE LEVEL 109 MMOL/L (98-107); CREATININE FOR GFR 1.09 MG/DL (0.70-1.30); GLOMERULAR FILTRATION RATE > 60.0 (>56); GLUCOSE, FASTING 116 MG/DL (60-100); POTASSIUM SERUM 4.3 MMOL/L (3.5-5.1); SODIUM LEVEL 141 MMOL/L (136-145)
[2022-07-02 18:00] VITALS: BP 131/76
[2022-07-02 18:30] VITALS: BP 130/75
[2022-07-02] MEDS: NS 1,000 ML IV SCH (18:53)
[2022-07-02 19:00] VITALS: BP 128/76
[2022-07-02 20:04] VITALS: BP 112/75
[2022-07-02] MEDS: OMEPRAZOLE 20MG CAP PO SCH (20:25)
[2022-07-02] MEDS: ceFAZolin SOD 1 GM in D5W MINI-BAG PLUS 50 ML IV SCH (20:25)
[2022-07-02] MEDS: DOCUSATE SODIUM 100MG CAPSULE PO SCH (20:25)
[2022-07-02] MEDS: HEPARIN SOD (PORCINE) 5000UNITS/ML 1ML VIAL/SYRINGE SC SCH (20:38)
[2022-07-02] MEDS: PERCOCET 5MG/325MG TAB PO PRN (20:39)
[2022-07-02 23:00] VITALS: BP 111/67
[2022-07-03 02:21] VITALS: BP 110/69
[2022-07-03] MEDS: PERCOCET 5MG/325MG TAB PO PRN ×4 (02:21→17:14)
[2022-07-03] MEDS: HEPARIN SOD (PORCINE) 5000UNITS/ML 1ML VIAL/SYRINGE SC SCH ×2 (05:27→14:00)
[2022-07-03] MEDS: ceFAZolin SOD 1 GM in D5W MINI-BAG PLUS 50 ML IV SCH (05:28)
[2022-07-03] MEDS: NS 1,000 ML IV SCH (05:28)
[2022-07-03 05:49] VITALS: BP 112/66
[2022-07-03 05:51] LABS: HEMATOCRIT 36.9 % (42.0-52.0); HEMOGLOBIN 12.1 g/dl (13.5-17.5); MEAN CORPUSCULAR HEMOGLOBIN 29.9 pg (27.0-33.0); MEAN CORPUSCULAR HGB CONC 32.8 g/dl (32.0-36.5); MEAN CORPUSCULAR VOLUME 91.1 fl (80.0-96.0); PLATELET COUNT, AUTOMATED 214 10^3/uL (150-450); RED BLOOD COUNT 4.05 10^6/uL (4.30-6.10); WHITE BLOOD COUNT 14.2 10^3/uL (4.0-10.0)
[2022-07-03 06:09] LABS: BLOOD UREA NITROGEN 16 MG/DL (9-23); CALCIUM LEVEL 7.7 MG/DL (8.5-10.1); CARBON DIOXIDE LEVEL 25 MMOL/L (20-31); CHLORIDE LEVEL 108 MMOL/L (98-107); CREATININE FOR GFR 1.07 MG/DL (0.70-1.30); GLOMERULAR FILTRATION RATE > 60.0 (>56); GLUCOSE, FASTING 97 MG/DL (60-100); POTASSIUM SERUM 4.6 MMOL/L (3.5-5.1); SODIUM LEVEL 139 MMOL/L (136-145)
[2022-07-03] MEDS: DOCUSATE SODIUM 100MG CAPSULE PO SCH (08:24)
[2022-07-03] MEDS: OMEPRAZOLE 20MG CAP PO SCH (08:24)
[2022-07-03] MEDS ORDERED: ATORVASTATIN 20 MG TAB PO SCH (09:00)
[2022-07-03] MEDS ORDERED: METOPROLOL SUCC *XL* 25MG TAB (TopROL *XL*) PO SCH (09:00)
[2022-07-03 11:02] VITALS: BP 107/65
[2022-07-03 14:49] VITALS: BP 110/64
[2022-07-03] MEDS ORDERED: COLA100C5 PO (16:28)
[2022-07-03] MEDS ORDERED: CIPR-249 PO (16:28)
[2022-07-03] MEDS ORDERED: PERCOCET PO (16:28)
== END 2022-07-03 17:55 | disposition home or self-care (01) | DRG 708 ==
LOC: M OR 10:24 → M MS5PR 18:00
PROVIDERS: ADMIT Urology; ATTEND Urology
PROC: 8E0W4CZ Robotic Assisted Procedure of Trunk Region, Percutaneous Endoscopic Approach (ICD-10-PCS; 2022-07-02)
PROC: 0VT04ZZ Resection of Prostate, Percutaneous Endoscopic Approach (ICD-10-PCS; principal; 2022-07-02 11:55)
DX: C61 Malignant neoplasm of prostate (principal); M54.50 Low back pain, unspecified; E78.00 Pure hypercholesterolemia, unspecified; I25.2 Old myocardial infarction; I25.10 Atherosclerotic heart disease of native coronary artery without angina pectoris; F17.200 Nicotine dependence, unspecified, uncomplicated; Z79.82 Long term (current) use of aspirin; Z79.899 Other long term (current) drug therapy; Z79.02 Long term (current) use of antithrombotics/antiplatelets

== ENCOUNTER → 2022-07-25 | Outpatient (REF) | payer OTHER ==
[~2022-07-25] MED LIST changes: +CIPR-249 PO; +COLA100C5 PO; +PERCOCET PO; -ceFAZolin SOD 2 GM in IV 1 EA IV ONE
[2022-07-25 13:51] LABS: APPEARANCE, URINE HAZY (CLEAR); BILIRUBIN, URINE AUTO NEGATIVE (NEGATIVE); BLOOD, URINE BLOOD NEGATIVE (NEGATIVE); COLOR, URINE YELLOW (YELLOW); GLUCOSE, URINE (UA) AUTO NEGATIVE (NEGATIVE); KETONE, URINE AUTO TRACE mg/dL (NEGATIVE); LEUKOCYTE ESTERASE, URINE AUTO TRACE (NEGATIVE); NITRITE, URINE AUTO NEGATIVE (NEGATIVE); PROTEIN, URINE AUTO NEGATIVE (NEGATIVE); SPECIFIC GRAVITY URINE AUTO 1.025 (1.002-1.035)
[2022-07-25 13:54] LABS: BACTERIA, URINE AUTO NEGATIVE (NEGATIVE); MUCUS, URINE SMALL (NEGATIVE); RBC, URINE AUTO 2 /HPF (0-3); SQUAMOUS EPITHELIAL CELL UR AU 0 /HPF (0-6); WBC, URINE AUTO 11 /HPF (0-3)
== END ==
LOC: M SMT 13:12
PROVIDERS: ATTEND Urology
DX: N39.0 Urinary tract infection, site not specified (principal)

== ENCOUNTER → 2022-08-07 | Outpatient (CLI) | payer OTHER | LOC: M WUC 09:07 | PROVIDERS: ATTEND Urology | DX: C61 Malignant neoplasm of prostate (principal); F17.200 Nicotine dependence, unspecified, uncomplicated; R32 Unspecified urinary incontinence | CPT/HCPCS: 36415; 84153; G0463 ==

== ENCOUNTER → 2022-08-27 | Outpatient (REF) | payer OTHER | LOC: M SMT 13:13 | PROVIDERS: ATTEND Physician Assistant | DX: L03.311 Cellulitis of abdominal wall (principal) | CPT/HCPCS: 87070; 87077; 87186; G0463 ==

== ENCOUNTER → 2022-09-10 | Outpatient (REF) | payer OTHER ==
[2022-09-10 14:17] LABS: APPEARANCE, URINE CLEAR (CLEAR); BACTERIA, URINE AUTO NEGATIVE (NEGATIVE); BILIRUBIN, URINE AUTO NEGATIVE (NEGATIVE); BLOOD, URINE BLOOD NEGATIVE (NEGATIVE); COLOR, URINE YELLOW (YELLOW); GLUCOSE, URINE (UA) AUTO NEGATIVE (NEGATIVE); KETONE, URINE AUTO TRACE mg/dL (NEGATIVE); LEUKOCYTE ESTERASE, URINE AUTO NEGATIVE (NEGATIVE); MUCUS, URINE SMALL (NEGATIVE); NITRITE, URINE AUTO NEGATIVE (NEGATIVE); PROTEIN, URINE AUTO NEGATIVE (NEGATIVE); RBC, URINE AUTO 0 /HPF (0-3); SQUAMOUS EPITHELIAL CELL UR AU 0 /HPF (0-6); WBC, URINE AUTO 1 /HPF (0-3)
== END ==
LOC: M SMT 12:59 → M LABWUC 12:59
PROVIDERS: ATTEND Urology
DX: N39.0 Urinary tract infection, site not specified (principal)

== ENCOUNTER → 2022-11-07 | Outpatient (CLI) | payer OTHER | LOC: M WUC 09:03 | PROVIDERS: ATTEND Urology | DX: C61 Malignant neoplasm of prostate (principal) | CPT/HCPCS: 36415; 84153; G0463 ==

== ENCOUNTER 2022-12-30 06:10 | Inpatient (IN) | payer OTHER ==
[~2022-12-30] VITALS: Ht 185.4 cm; Wt 90.9 kg
[2022-12-30] VITALS (31 sets, daily range): BP systolic 87–120; BP diastolic 50–66; TEMP 98.1–99.3; O2SAT 92–100
[2022-12-30] MEDS ORDERED: CLOP75TA2 PO (06:35)
[2022-12-30] MEDS ORDERED: BOOSTRIX VACCINE (TETANUS/DIPHTH/ACEL. PERTUSSIS) 0.5ML SYR IM.IMMUN ONE (07:00)
[2022-12-30] MEDS ORDERED: AMPICILLIN SOD/SULBACTAM SOD 3 GM in D5W MINI-BAG PLUS 100 ML IV ONE (07:00)
[2022-12-30] MEDS ORDERED: NS 1,000 ML IV ONE ×4 (07:00→11:35)
[2022-12-30 07:25] LABS: BASO % 0.2 % (0.0-1.0); EOS # 0.1 10^3/uL (0.0-0.5); EOS % 0.5 % (0.0-3.0); HEMATOCRIT 39.6 % (42.0-52.0); HEMOGLOBIN 13.2 g/dl (13.5-17.5); LYMPH # 1.2 10^3/uL (1.5-5.0); LYMPH % 9.4 % (24.0-44.0); MEAN CORPUSCULAR HEMOGLOBIN 29.7 pg (27.0-33.0); MEAN CORPUSCULAR HGB CONC 33.3 g/dl (32.0-36.5); MONO # 0.7 10^3/uL (0.0-0.8); MONO % 5.3 % (2.0-8.0); NEUTROPHILS # 10.6 10^3/uL (1.5-8.5); NEUTROPHILS % 84.2 % (36.0-66.0); PLATELET COUNT, AUTOMATED 225 10^3/uL (150-450); RED BLOOD COUNT 4.45 10^6/uL (4.30-6.10); WHITE BLOOD COUNT 12.6 10^3/uL (4.0-10.0)
[2022-12-30 07:26] LABS: BLOOD UREA NITROGEN 9 MG/DL (9-23); CALCIUM LEVEL 8.4 MG/DL (8.5-10.1); CARBON DIOXIDE LEVEL 26 MMOL/L (20-31); CHLORIDE LEVEL 106 MMOL/L (98-107); CREATININE FOR GFR 1.12 MG/DL (0.70-1.30); GLOMERULAR FILTRATION RATE > 60.0 (>56); GLUCOSE, FASTING 107 MG/DL (60-100); POTASSIUM SERUM 4.2 MMOL/L (3.5-5.1); SODIUM LEVEL 140 MMOL/L (136-145)
[2022-12-30] MEDS ORDERED: ACETAMINOPHEN TAB 650MG DOSE (2X325MG) PO ONE (07:45)
[2022-12-30] MEDS ORDERED: ONDANSETRON 4MG 2ML VIAL IV ONE (09:20)
[2022-12-30] MEDS ORDERED: IBUPROFEN 400MG TAB PO ONE (11:00)
[2022-12-30] MEDS ORDERED: NOREPINEPHRINE 4MG IN D5 250ML 4 MG in IV 1 EA IV SCH ×4 (11:35→12:05)
[2022-12-30] MEDS ORDERED: HOME MED LIST COMPLETE! XX SCH (11:55)
[2022-12-30] MEDS ORDERED: VANCOMYCIN HCL 1,500 MG in NS 250 ML IV ONE (12:00)
[2022-12-30] MEDS ORDERED: LR 1,000 ML IV ONE ×2 (12:00→14:20)
[2022-12-30] MEDS ORDERED: HYDROCORTISONE 100MG/2ML VIAL IV ONE (12:15)
[2022-12-30] MEDS ORDERED: VANCOMYCIN HCL 750 MG, VIAL MATE ADAPTER 1 EACH in D5W 250 ML IV ONE ×6 (13:00)
[2022-12-30] MEDS ORDERED: ISOVUE-370 76% 100ML VIAL As Ordered ONE (13:13)
[2022-12-30] MEDS: NOREPINEPHRINE 4MG IN D5 250ML 4 MG in IV 1 EA IV SCH ×4 (14:50→20:24)
[2022-12-30] MEDS ORDERED: VANCOMYCIN HCL 1,000 MG, VIAL MATE ADAPTER 1 EACH in D5W 250 ML IV SCH ×2 (14:50→23:00)
[2022-12-30] MEDS: VASOPRESSIN INJ 20 UNITS in NS 499 ML IV SCH ×2 (16:00→18:14)
[2022-12-30] MEDS: PIPERACILLIN/TAZOBACTAM SOD 4.5 GM in D5W MINI-BAG PLUS 50 ML IV SCH ×2 (16:39→21:14)
[2022-12-30] MEDS: LR 1,000 ML IV SCH ×2 (17:25→23:40)
[2022-12-30] MEDS: FLUDROCORTISONE ACETATE 0.1 MG TAB PO SCH (18:22)
[2022-12-30] MEDS ORDERED: ONDANSETRON 4MG 2ML VIAL IV PRN (20:10)
[2022-12-30] MEDS: ACETAMINOPHEN TAB 650MG DOSE (2X325MG) PO PRN (23:40)
[2022-12-31] VITALS (47 sets, daily range): BP systolic 86–132; BP diastolic 49–70; TEMP 97.8–101.1; O2SAT 16–98
[2022-12-31] MEDS ORDERED: LIDOCAINE 5% (LIDODERM) PATCH TD ONE
[2022-12-31] MEDS: NOREPINEPHRINE 4MG IN D5 250ML 4 MG in IV 1 EA IV SCH ×2 (01:58)
[2022-12-31] MEDS: VASOPRESSIN INJ 20 UNITS in NS 499 ML IV SCH (02:55)
[2022-12-31] MEDS: PIPERACILLIN/TAZOBACTAM SOD 4.5 GM in D5W MINI-BAG PLUS 50 ML IV SCH ×4 (04:20→21:11)
[2022-12-31] MEDS: LR 1,000 ML IV SCH ×3 (04:20→22:27)
[2022-12-31 04:53] LABS: BASO # 0.1 10^3/uL (0.0-0.2); BASO % 0.4 % (0.0-1.0); EOS % 0.1 % (0.0-3.0); HEMATOCRIT 33.1 % (42.0-52.0); LYMPH # 1.6 10^3/uL (1.5-5.0); LYMPH % 11.9 % (24.0-44.0); MEAN CORPUSCULAR HEMOGLOBIN 29.6 pg (27.0-33.0); MEAN CORPUSCULAR HGB CONC 33.2 g/dl (32.0-36.5); MONO # 0.5 10^3/uL (0.0-0.8); MONO % 3.4 % (2.0-8.0); NEUTROPHILS # 11.5 10^3/uL (1.5-8.5); NEUTROPHILS % 83.7 % (36.0-66.0); PLATELET COUNT, AUTOMATED 145 10^3/uL (150-450); RED BLOOD COUNT 3.72 10^6/uL (4.30-6.10); WHITE BLOOD COUNT 13.8 10^3/uL (4.0-10.0)
[2022-12-31 05:05] LABS: CK-MB VALUE MASS < 1.0 NG/ML (<3.6)
[2022-12-31 05:07] LABS: ALBUMIN 2.6 G/DL (3.2-5.2); ALKALINE PHOSPHATASE 66 U/L (46-116); ALT/SGPT 59 U/L (7.0-40); AST/SGOT 60 U/L (<34); BILIRUBIN,TOTAL 1.3 MG/DL (0.3-1.2); BLOOD UREA NITROGEN 11 MG/DL (9-23); CALCIUM LEVEL 7.3 MG/DL (8.5-10.1); CARBON DIOXIDE LEVEL 24 MMOL/L (20-31); CHLORIDE LEVEL 109 MMOL/L (98-107); CPK CREATINE PHOSPHOKINASE 342 U/L (46-171); CREATININE FOR GFR 1.08 MG/DL (0.70-1.30); GLOMERULAR FILTRATION RATE > 60.0 (>56); GLUCOSE, FASTING 126 MG/DL (60-100); MAGNESIUM LEVEL 1.2 MG/DL (1.8-2.4); MB/CK RELATIVE INDEX 0.29 (< OR =4); POTASSIUM SERUM 4.3 MMOL/L (3.5-5.1); SODIUM LEVEL 141 MMOL/L (136-145); TOTAL PROTEIN 4.7 G/DL (5.7-8.2)
[2022-12-31] MEDS: MAG SULF 1GM/100ML (MAG RUN) 1 GM in IV 1 EA IV SCH ×4 (06:21→15:24)
[2022-12-31] MEDS ORDERED: PANTOPRAZOLE 40MG VIAL IV SCH (09:00)
[2022-12-31] MEDS: ENOXAPARIN 40MG/0.4ML SYRINGE (J1650 PER 10MG) SC SCH (09:18)
[2022-12-31] MEDS: ASPIRIN 81MG ENTERIC TABLET PO SCH (10:31)
[2022-12-31] MEDS: ATORVASTATIN 20 MG TAB PO SCH (10:31)
[2022-12-31] MEDS: CLOPIDOGREL 75 MG TAB PO SCH (10:31)
[2022-12-31] MEDS: FLUDROCORTISONE ACETATE 0.1 MG TAB PO SCH (10:32)
[2022-12-31] MEDS ORDERED: VANCOMYCIN HCL 750 MG, VIAL MATE ADAPTER 1 EACH in D5W 250 ML IV SCH (11:00)
[2022-12-31] MEDS: VANCOMYCIN HCL 750 MG, VIAL MATE ADAPTER 1 EACH in D5W 250 ML IV SCH ×2 (11:10→18:09)
[2022-12-31] MEDS ORDERED: NICOTINE 14 MG/24 HR TRANSDERMAL TD PRN (19:55)
[2022-12-31] MEDS: OMEPRAZOLE 20MG CAP PO SCH (20:14)
[2022-12-31] MEDS: ACETAMINOPHEN TAB 650MG DOSE (2X325MG) PO PRN (23:51)
[2023-01-01] VITALS (7 sets, daily range): BP systolic 114–128; BP diastolic 66–79; TEMP 98.1–100.9; O2SAT 92–96
[2023-01-01] MEDS: VANCOMYCIN HCL 750 MG, VIAL MATE ADAPTER 1 EACH in D5W 250 ML IV SCH ×3 (02:30→20:35)
[2023-01-01 03:12] LABS: MAGNESIUM LEVEL 1.6 MG/DL (1.8-2.4)
[2023-01-01] MEDS: PIPERACILLIN/TAZOBACTAM SOD 4.5 GM in D5W MINI-BAG PLUS 50 ML IV SCH ×4 (03:21→21:55)
[2023-01-01] MEDS: MAG SULF 1GM/100ML (MAG RUN) 1 GM in IV 1 EA IV SCH ×2 (04:14→05:12)
[2023-01-01 05:20] LABS: BASO # 0.1 10^3/uL (0.0-0.2); BASO % 0.5 % (0.0-1.0); EOS # 0.1 10^3/uL (0.0-0.5); EOS % 0.5 % (0.0-3.0); HEMATOCRIT 32.9 % (42.0-52.0); LYMPH # 2.7 10^3/uL (1.5-5.0); LYMPH % 24.5 % (24.0-44.0); MEAN CORPUSCULAR HEMOGLOBIN 29.6 pg (27.0-33.0); MEAN CORPUSCULAR HGB CONC 33.4 g/dl (32.0-36.5); MEAN CORPUSCULAR VOLUME 88.4 fl (80.0-96.0); MONO # 0.8 10^3/uL (0.0-0.8); MONO % 7.3 % (2.0-8.0); NEUTROPHILS # 7.2 10^3/uL (1.5-8.5); NEUTROPHILS % 66.6 % (36.0-66.0); PLATELET COUNT, AUTOMATED 133 10^3/uL (150-450); RED BLOOD COUNT 3.72 10^6/uL (4.30-6.10); WHITE BLOOD COUNT 10.8 10^3/uL (4.0-10.0)
[2023-01-01 05:51] LABS: ALBUMIN 2.5 G/DL (3.2-5.2); ALKALINE PHOSPHATASE 85 U/L (46-116); ALT/SGPT 56 U/L (7.0-40); AST/SGOT 50 U/L (<34); BILIRUBIN,TOTAL 0.7 MG/DL (0.3-1.2); BLOOD UREA NITROGEN 10 MG/DL (9-23); CALCIUM LEVEL 7.6 MG/DL (8.5-10.1); CARBON DIOXIDE LEVEL 25 MMOL/L (20-31); CHLORIDE LEVEL 110 MMOL/L (98-107); CREATININE FOR GFR 1.18 MG/DL (0.70-1.30); GLOMERULAR FILTRATION RATE > 60.0 (>56); GLUCOSE, FASTING 109 MG/DL (60-100); POTASSIUM SERUM 3.7 MMOL/L (3.5-5.1); SODIUM LEVEL 144 MMOL/L (136-145); TOTAL PROTEIN 4.8 G/DL (5.7-8.2)
[2023-01-01] MEDS: LR 1,000 ML IV SCH (06:28)
[2023-01-01 08:08] LABS: MAGNESIUM LEVEL 1.8 MG/DL (1.8-2.4)
[2023-01-01] MEDS: ASPIRIN 81MG ENTERIC TABLET PO SCH (08:29)
[2023-01-01] MEDS: ENOXAPARIN 40MG/0.4ML SYRINGE (J1650 PER 10MG) SC SCH (08:29)
[2023-01-01] MEDS: ATORVASTATIN 20 MG TAB PO SCH (08:29)
[2023-01-01] MEDS: OMEPRAZOLE 20MG CAP PO SCH ×2 (08:30→20:35)
[2023-01-01] MEDS: CLOPIDOGREL 75 MG TAB PO SCH (08:30)
[2023-01-01] MEDS: VANCOMYCIN HCL 500 MG in D5W MINI-BAG PLUS 100 ML IV SCH ×2 (12:29→19:22)
[2023-01-01] MEDS: METOPROLOL SUCC *XL* 25MG TAB (TopROL *XL*) PO SCH (15:14)
[2023-01-01] MEDS: ACETAMINOPHEN TAB 650MG DOSE (2X325MG) PO PRN (22:10)
[2023-01-02] MEDS: VANCOMYCIN HCL 750 MG, VIAL MATE ADAPTER 1 EACH in D5W 250 ML IV SCH ×2 (03:08→12:46)
[2023-01-02] MEDS: VANCOMYCIN HCL 500 MG in D5W MINI-BAG PLUS 100 ML IV SCH ×2 (04:16→11:30)
[2023-01-02] MEDS: PIPERACILLIN/TAZOBACTAM SOD 4.5 GM in D5W MINI-BAG PLUS 50 ML IV SCH ×3 (04:27→14:55)
[2023-01-02 05:12] VITALS: BP 130/80; TEMP 99.1; O2SAT 94
[2023-01-02 06:07] LABS: BASO % 0.4 % (0.0-1.0); EOS # 0.1 10^3/uL (0.0-0.5); HEMATOCRIT 31.7 % (42.0-52.0); HEMOGLOBIN 10.7 g/dl (13.5-17.5); LYMPH # 2.6 10^3/uL (1.5-5.0); LYMPH % 27.7 % (24.0-44.0); MEAN CORPUSCULAR HEMOGLOBIN 29.6 pg (27.0-33.0); MEAN CORPUSCULAR HGB CONC 33.8 g/dl (32.0-36.5); MEAN CORPUSCULAR VOLUME 87.8 fl (80.0-96.0); MONO % 10.8 % (2.0-8.0); NEUTROPHILS # 5.6 10^3/uL (1.5-8.5); NEUTROPHILS % 59.7 % (36.0-66.0); PLATELET COUNT, AUTOMATED 132 10^3/uL (150-450); RED BLOOD COUNT 3.61 10^6/uL (4.30-6.10); WHITE BLOOD COUNT 9.4 10^3/uL (4.0-10.0)
[2023-01-02 06:30] LABS: BLOOD UREA NITROGEN 7 MG/DL (9-23); CALCIUM LEVEL 7.5 MG/DL (8.5-10.1); CARBON DIOXIDE LEVEL 24 MMOL/L (20-31); CHLORIDE LEVEL 110 MMOL/L (98-107); CREATININE FOR GFR 1.02 MG/DL (0.70-1.30); GLOMERULAR FILTRATION RATE > 60.0 (>56); GLUCOSE, FASTING 120 MG/DL (60-100); POTASSIUM SERUM 3.7 MMOL/L (3.5-5.1); SODIUM LEVEL 142 MMOL/L (136-145)
[2023-01-02] MEDS: ENOXAPARIN 40MG/0.4ML SYRINGE (J1650 PER 10MG) SC SCH (10:05)
[2023-01-02] MEDS: CLOPIDOGREL 75 MG TAB PO SCH (10:06)
[2023-01-02] MEDS: METOPROLOL SUCC *XL* 25MG TAB (TopROL *XL*) PO SCH ×2 (10:06→10:07)
[2023-01-02] MEDS: OMEPRAZOLE 20MG CAP PO SCH (10:06)
[2023-01-02] MEDS: ASPIRIN 81MG ENTERIC TABLET PO SCH (10:06)
[2023-01-02] MEDS: ATORVASTATIN 20 MG TAB PO SCH (10:06)
[2023-01-02] MEDS ORDERED: AMOX875T2 PO (10:37)
[2023-01-02] MEDS ORDERED: DOXY-444 PO (12:25)
[2023-01-02 14:00] VITALS: BP 135/81; TEMP 97.9; O2SAT 97
== END 2023-01-02 16:31 | disposition home or self-care (01) | DRG 871 ==
LOC: M ED 06:10 → M ED INP 14:22 → M ICU 16:08 → M MSPAV 01-01 16:45
PROVIDERS: ADMIT Internal Medicine Critical Care Medicine; ATTEND Internal Medicine
DX: A41.9 Sepsis, unspecified organism (principal); R65.21 Severe sepsis with septic shock; I25.10 Atherosclerotic heart disease of native coronary artery without angina pectoris; K21.9 Gastro-esophageal reflux disease without esophagitis; R00.1 Bradycardia, unspecified; R74.01 Elevation of levels of liver transaminase levels; K44.9 Diaphragmatic hernia without obstruction or gangrene; F17.200 Nicotine dependence, unspecified, uncomplicated; I25.2 Old myocardial infarction; Z85.46 Personal history of malignant neoplasm of prostate; Z95.5 Presence of coronary angioplasty implant and graft; Z79.82 Long term (current) use of aspirin; Z79.899 Other long term (current) drug therapy; S61.052A Open bite of left thumb without damage to nail, initial encounter; W54.0XXA Bitten by dog, initial encounter; Y93.K9 Activity, other involving animal care; Y92.89 Other specified places as the place of occurrence of the external cause; Y99.8 Other external cause status

== ENCOUNTER 2023-01-05 12:37 | Emergency (ER) | payer OTHER ==
[~2023-01-05] VITALS: Ht 185.4 cm; Wt 91.8 kg
[~2023-01-05 12:37] MED LIST changes: +AMOX875T2 PO; +DOXY-444 PO
[2023-01-05 13:27] LABS: BASO # 0.1 10^3/uL (0.0-0.2); BASO % 0.6 % (0.0-1.0); EOS # 0.1 10^3/uL (0.0-0.5); EOS % 0.9 % (0.0-3.0); HEMATOCRIT 37.8 % (42.0-52.0); HEMOGLOBIN 12.6 g/dl (13.5-17.5); LYMPH # 3.4 10^3/uL (1.5-5.0); LYMPH % 31.4 % (24.0-44.0); MEAN CORPUSCULAR HEMOGLOBIN 29.6 pg (27.0-33.0); MEAN CORPUSCULAR HGB CONC 33.3 g/dl (32.0-36.5); MEAN CORPUSCULAR VOLUME 88.9 fl (80.0-96.0); MONO # 0.8 10^3/uL (0.0-0.8); MONO % 7.5 % (2.0-8.0); NEUTROPHILS # 6.4 10^3/uL (1.5-8.5); PLATELET COUNT, AUTOMATED 311 10^3/uL (150-450); RED BLOOD COUNT 4.25 10^6/uL (4.30-6.10); WHITE BLOOD COUNT 10.8 10^3/uL (4.0-10.0)
[2023-01-05 13:39] LABS: INR 1.06
[2023-01-05 13:40] LABS: PARTIAL THROMBOPLASTIN TIME 20.6 SECONDS (24.8-34.2)
[2023-01-05 13:46] LABS: CK-MB VALUE MASS < 1.0 NG/ML (<3.6)
[2023-01-05 13:47] LABS: LIPASE 36 U/L (12-53)
[2023-01-05 13:49] LABS: ALBUMIN 3.3 G/DL (3.2-5.2); ALKALINE PHOSPHATASE 129 U/L (46-116); ALT/SGPT 35 U/L (7.0-40); AST/SGOT 32 U/L (<34); BILIRUBIN,DIRECT 0.3 MG/DL (<0.4); BILIRUBIN,TOTAL 0.9 MG/DL (0.3-1.2); BLOOD UREA NITROGEN 9 MG/DL (9-23); CALCIUM LEVEL 8.5 MG/DL (8.5-10.1); CARBON DIOXIDE LEVEL 24 MMOL/L (20-31); CHLORIDE LEVEL 107 MMOL/L (98-107); CREATININE FOR GFR 0.94 MG/DL (0.70-1.30); GLOMERULAR FILTRATION RATE > 60.0 (>56); GLUCOSE, FASTING 89 MG/DL (60-100); POTASSIUM SERUM 4.4 MMOL/L (3.5-5.1); SODIUM LEVEL 142 MMOL/L (136-145); TOTAL PROTEIN 6.1 G/DL (5.7-8.2)
[2023-01-05 13:53] LABS: CPK CREATINE PHOSPHOKINASE 148 U/L (46-171); MB/CK RELATIVE INDEX 0.67 (< OR =4)
[2023-01-05] MEDS ORDERED: ISOVUE-370 76% 100ML VIAL As Ordered ONE (14:08)
[2023-01-05 14:37] LABS: CK-MB VALUE MASS < 1.0 NG/ML (<3.6)
[2023-01-05 14:39] LABS: CPK CREATINE PHOSPHOKINASE 128 U/L (46-171); MB/CK RELATIVE INDEX 0.78 (< OR =4)
[2023-01-05 15:27] VITALS: BP 120/88; TEMP 97.9; O2SAT 97
== END 2023-01-05 15:28 | disposition home or self-care (01) ==
LOC: EDBD 12:37 → M ED 12:37
DX: R07.89 Other chest pain (principal); R53.81 Other malaise; R53.83 Other fatigue; I11.9 Hypertensive heart disease without heart failure; I25.10 Atherosclerotic heart disease of native coronary artery without angina pectoris; I25.2 Old myocardial infarction; K21.9 Gastro-esophageal reflux disease without esophagitis; Z85.46 Personal history of malignant neoplasm of prostate; F17.210 Nicotine dependence, cigarettes, uncomplicated; Z79.899 Other long term (current) drug therapy; Z79.82 Long term (current) use of aspirin
CPT/HCPCS: 36415; 71045; 71275; 80048; 80076; 82550; 82553; 83605; 83690; 84484; 85025; 85610; 85730; 87040; 93005; 93041; 94760; 99285; Q9967

== ENCOUNTER 2023-04-27 16:43 | Emergency (ER) | payer OTHER ==
[~2023-04-27] VITALS: Ht 185.4 cm; Wt 90.9 kg
[2023-04-27 18:40] LABS: BASO # 0.1 10^3/uL (0.0-0.2); BASO % 0.5 % (0.0-1.0); EOS # 0.1 10^3/uL (0.0-0.5); HEMATOCRIT 42.1 % (42.0-52.0); HEMOGLOBIN 14.3 g/dl (13.5-17.5); LYMPH % 36.4 % (24.0-44.0); MEAN CORPUSCULAR HEMOGLOBIN 30.3 pg (27.0-33.0); MEAN CORPUSCULAR VOLUME 89.2 fl (80.0-96.0); MONO # 0.9 10^3/uL (0.0-0.8); MONO % 8.2 % (2.0-8.0); NEUTROPHILS # 5.9 10^3/uL (1.5-8.5); NEUTROPHILS % 53.8 % (36.0-66.0); PLATELET COUNT, AUTOMATED 230 10^3/uL (150-450); RED BLOOD COUNT 4.72 10^6/uL (4.30-6.10); WHITE BLOOD COUNT 10.9 10^3/uL (4.0-10.0)
[2023-04-27 19:04] LABS: INR 1.1; PARTIAL THROMBOPLASTIN TIME 27.5 SECONDS (24.8-34.2); PROTHROMBIN TIME 13.8 SECONDS (12.5-14.5)
[2023-04-27 19:08] LABS: BLOOD UREA NITROGEN 13 MG/DL (9-23); CALCIUM LEVEL 9.5 MG/DL (8.5-10.1); CARBON DIOXIDE LEVEL 26 MMOL/L (20-31); CHLORIDE LEVEL 107 MMOL/L (98-107); CK-MB VALUE MASS 1.7 NG/ML (<3.6); CREATININE FOR GFR 0.97 MG/DL (0.70-1.30); GLOMERULAR FILTRATION RATE > 60.0 (>56); GLUCOSE, FASTING 76 MG/DL (60-100); POTASSIUM SERUM 4.4 MMOL/L (3.5-5.1); SODIUM LEVEL 140 MMOL/L (136-145)
[2023-04-27 19:09] LABS: CPK CREATINE PHOSPHOKINASE 326 U/L (46-171); MB/CK RELATIVE INDEX 0.52 (< OR =4)
[2023-04-27 19:23] LABS: RSV AMPLIFICATION NEGATIVE (NEGATIVE)
[2023-04-27 20:45] VITALS: O2SAT 95
[2023-04-27] MEDS ORDERED: DOXYCYCLINE HYCLATE 100MG TABLET PO ONE (21:30)
[2023-04-27] MEDS ORDERED: DOXY-443 PO (21:32)
[2023-04-27 22:00] VITALS: BP 126/74; TEMP 98.1
== END 2023-04-27 22:15 | disposition home or self-care (01) ==
LOC: M ED 16:43
DX: N45.1 Epididymitis (principal); I51.9 Heart disease, unspecified; F17.200 Nicotine dependence, unspecified, uncomplicated; Z79.82 Long term (current) use of aspirin; Z79.899 Other long term (current) drug therapy

== ENCOUNTER → 2023-04-29 | Outpatient (CLI) | payer OTHER ==
[~2023-04-29] MED LIST changes: +DOXY-443 PO
== END ==
LOC: M LAB 12:35
PROVIDERS: ATTEND Urology
DX: C61 Malignant neoplasm of prostate (principal)

== ENCOUNTER → 2023-12-02 | Outpatient (CLI) | payer OTHER ==
[~2023-12-02] MED LIST changes: +DOXY-323 PO; +DOXY-440 PO; -DOXY-443 PO; -DOXY-444 PO
== END ==
LOC: M WUC 08:06
PROVIDERS: ATTEND Urology
DX: C61 Malignant neoplasm of prostate (principal)

== ENCOUNTER 2023-12-26 07:58 | Emergency (ER) | payer OTHER ==
[~2023-12-26] VITALS: Ht 185.4 cm; Wt 90.9 kg
[2023-12-26 08:35] LABS: HEMATOCRIT 39.2 % (42.0-52.0); HEMOGLOBIN 13.3 g/dl (13.5-17.5); MEAN CORPUSCULAR HEMOGLOBIN 30.9 pg (27.0-33.0); MEAN CORPUSCULAR HGB CONC 33.9 g/dl (32.0-36.5); PLATELET COUNT, AUTOMATED 226 10^3/uL (150-450); RED BLOOD COUNT 4.31 10^6/uL (4.30-6.10); WHITE BLOOD COUNT 7.5 10^3/uL (4.0-10.0)
[2023-12-26 09:00] LABS: BLOOD UREA NITROGEN 15 MG/DL (9-23); CALCIUM LEVEL 9.1 MG/DL (8.5-10.1); CARBON DIOXIDE LEVEL 27 MMOL/L (20-31); CHLORIDE LEVEL 112 MMOL/L (98-107); GLOMERULAR FILTRATION RATE > 60.0 (>56); GLUCOSE, FASTING 112 MG/DL (60-100); POTASSIUM SERUM 4.2 MMOL/L (3.5-5.1); SODIUM LEVEL 144 MMOL/L (136-145)
[2023-12-26] MEDS ORDERED: FLOM0.4C39 PO (10:15)
[2023-12-26] MEDS ORDERED: PERC5TAB12 PO (10:16)
[2023-12-26] MEDS ORDERED: KETO10TAB PO (10:16)
[2023-12-26] MEDS: PERCOCET 5MG/325MG TAB PO ONE (10:30)
[2023-12-26 10:45] VITALS: BP 123/65; TEMP 97.1; O2SAT 95
== END 2023-12-26 11:08 | disposition home or self-care (01) ==
LOC: M ED 07:58
DX: N20.1 Calculus of ureter (principal); I25.119 Atherosclerotic heart disease of native coronary artery with unspecified angina pectoris; E78.5 Hyperlipidemia, unspecified; F17.210 Nicotine dependence, cigarettes, uncomplicated; Z79.1 Long term (current) use of non-steroidal anti-inflammatories (NSAID); Z79.899 Other long term (current) drug therapy

== ENCOUNTER → 2024-02-10 | Outpatient (CLI) | payer OTHER ==
[~2024-02-10] MED LIST changes: +KETO10TAB PO; +PERC5TAB12 PO
== END ==
LOC: M RAD 06:43
PROVIDERS: ATTEND Urology
DX: N20.1 Calculus of ureter (principal)

== ENCOUNTER → 2024-04-19 | Outpatient (CLI) | payer OTHER ==
[~2024-04-19] MED LIST changes: +ATOR-398 PO; -DOXY-323 PO; +DOXY-441 PO; -LIPI80TA PO
== END ==
LOC: M RAD 08:12
PROVIDERS: ATTEND Nurse Practitioner Family
DX: Z12.2 Encounter for screening for malignant neoplasm of respiratory organs (principal); F17.210 Nicotine dependence, cigarettes, uncomplicated

== ENCOUNTER → 2024-07-28 | Outpatient (CLI) | payer OTHER | LOC: M WUC 13:39 | PROVIDERS: ATTEND Nurse Practitioner Family | DX: M54.59 Other low back pain (principal) ==

== ENCOUNTER 2024-08-11 09:12 | Day surgery (SDC) | payer OTHER ==
[~2024-08-11] VITALS: Ht 185.4 cm; Wt 89.9 kg
[~2024-08-11 09:12] MED LIST changes: +LIDOCAINE 2% 100MG/5ML SDV (FOR ANES.) As Ordered ONE; +propofoL 200 MG/20 ML VIAL As Ordered ONE
[2024-08-11] MEDS ORDERED: GLYCOPYRROLATE INJ 0.2 MG/ML 2 ML VIAL As Ordered ONE (10:34)
[2024-08-11 11:45] VITALS: BP 109/69; TEMP 97.9; O2SAT 97
== END 2024-08-11 11:50 | disposition home or self-care (01) ==
LOC: M OPP 09:12
PROVIDERS: ATTEND Internal Medicine Gastroenterology
DX: D12.6 Benign neoplasm of colon, unspecified (principal); K64.8 Other hemorrhoids; Z80.0 Family history of malignant neoplasm of digestive organs; Z86.0100 Personal history of colon polyps, unspecified; K44.9 Diaphragmatic hernia without obstruction or gangrene; K29.50 Unspecified chronic gastritis without bleeding; K25.9 Gastric ulcer, unspecified as acute or chronic, without hemorrhage or perforation; R12 Heartburn; Z86.73 Personal history of transient ischemic attack (TIA), and cerebral infarction without residual deficits; Z95.1 Presence of aortocoronary bypass graft; Z79.82 Long term (current) use of aspirin; Z79.891 Long term (current) use of opiate analgesic; Z79.899 Other long term (current) drug therapy; F17.210 Nicotine dependence, cigarettes, uncomplicated
CPT/HCPCS: 43239; 45385; 88305; J1596

== ENCOUNTER → 2024-09-08 | Outpatient (REF) | payer OTHER ==
[~2024-09-08] MED LIST changes: -LIDOCAINE 2% 100MG/5ML SDV (FOR ANES.) As Ordered ONE; -propofoL 200 MG/20 ML VIAL As Ordered ONE
== END ==
LOC: M LABWUC 17:42
PROVIDERS: ATTEND Physician Assistant
DX: C61 Malignant neoplasm of prostate (principal)

== ENCOUNTER → 2024-09-09 | Outpatient (CLI) | payer OTHER | LOC: M RAD 16:28 | PROVIDERS: ATTEND Nurse Practitioner Family | DX: R10.2 Pelvic and perineal pain (principal); K44.9 Diaphragmatic hernia without obstruction or gangrene; K40.20 Bilateral inguinal hernia, without obstruction or gangrene, not specified as recurrent ==

== ENCOUNTER 2024-09-19 07:29 | Emergency (ER) | payer OTHER ==
[~2024-09-19] VITALS: Ht 160 cm; Wt 68.3 kg
[2024-09-19 08:11] LABS: HEMATOCRIT 42.1 % (42.0-52.0); HEMOGLOBIN 14.2 g/dl (13.5-17.5); MEAN CORPUSCULAR HEMOGLOBIN 30.5 pg (27.0-33.0); MEAN CORPUSCULAR HGB CONC 33.7 g/dl (32.0-36.5); MEAN CORPUSCULAR VOLUME 90.5 fl (80.0-96.0); PLATELET COUNT, AUTOMATED 238 10^3/uL (150-450); RED BLOOD COUNT 4.65 10^6/uL (4.30-6.10); WHITE BLOOD COUNT 9.9 10^3/uL (4.0-10.0)
[2024-09-19] MEDS: ASPIRIN 81MG CHEW TABLET PO ONE (08:24)
[2024-09-19 08:28] LABS: CK-MB VALUE MASS 1.3 NG/ML (<3.6)
[2024-09-19 08:29] LABS: LIPASE 55 U/L (12-53)
[2024-09-19 08:31] LABS: ALBUMIN 3.6 G/DL (3.2-5.2); ALKALINE PHOSPHATASE 82 U/L (40-129); ALT/SGPT 29 U/L (7.0-40); AST/SGOT 27 U/L (<34); BILIRUBIN,DIRECT 0.1 MG/DL (<0.4); BILIRUBIN,TOTAL 0.3 MG/DL (0.3-1.2); BLOOD UREA NITROGEN 14 MG/DL (9-23); CALCIUM LEVEL 9.2 MG/DL (8.5-10.1); CARBON DIOXIDE LEVEL 27 MMOL/L (20-31); CHLORIDE LEVEL 109 MMOL/L (98-107); CREATININE FOR GFR 1.13 MG/DL (0.70-1.30); GLOMERULAR FILTRATION RATE 77.2 (>56); GLUCOSE, FASTING 93 MG/DL (60-100); POTASSIUM SERUM 4.4 MMOL/L (3.5-5.1); SODIUM LEVEL 144 MMOL/L (136-145); TOTAL PROTEIN 6.3 G/DL (5.7-8.2)
[2024-09-19 08:33] LABS: THYROID STIMULATING HORMONE 1.888 uIU/ML (0.55-4.78)
[2024-09-19 08:36] LABS: CPK CREATINE PHOSPHOKINASE 315 U/L (46-171); MB/CK RELATIVE INDEX 0.41 (< OR =4)
[2024-09-19] MEDS ORDERED: ISOVUE-370 76% 100ML VIAL As Ordered ONE (08:47)
[2024-09-19 08:49] LABS: ATYPICAL LYMPH 16 % (0-5); BASOPHILS 1 % (0-1); EOSINOPHILS 1 % (0-3); LYMPHOCYTES 35 % (16-44); MONOCYTES 6 % (0-5); NEUTROPHILS 41 % (28-66); PLATELET ESTIMATE NORMAL (NORMAL)
[2024-09-19 08:54] LABS: ERYTHROCYTE SEDIMENTATION RATE 9 mm/hr (0-20)
[2024-09-19] MEDS ORDERED: MULTTAB61 PO (09:07)
[2024-09-19] MEDS ORDERED: HOME MED LIST COMPLETE! XX SCH (09:10)
[2024-09-19 09:44] LABS: CK-MB VALUE MASS 1.2 NG/ML (<3.6)
[2024-09-19 09:53] LABS: CPK CREATINE PHOSPHOKINASE 273 U/L (46-171); MB/CK RELATIVE INDEX 0.43 (< OR =4)
[2024-09-19] MEDS: KETOROLAC 30 MG/ML 1ML VIAL IV ONE (10:16)
[2024-09-19] MEDS: SUCRALFATE SUSP 1GM/10ML UD PO ONE (11:34)
[2024-09-19] MEDS: PANTOPRAZOLE 40MG TAB (PROTONIX) PO ONE (11:34)
[2024-09-19 12:30] VITALS: BP 108/70; TEMP 97.9; O2SAT 97
== END 2024-09-19 12:50 | disposition home or self-care (01) ==
LOC: M ED 07:29
DX: R07.9 Chest pain, unspecified (principal); Q40.1 Congenital hiatus hernia; I25.119 Atherosclerotic heart disease of native coronary artery with unspecified angina pectoris; F17.210 Nicotine dependence, cigarettes, uncomplicated; Z79.1 Long term (current) use of non-steroidal anti-inflammatories (NSAID); Z79.899 Other long term (current) drug therapy; Z79.810 Long term (current) use of selective estrogen receptor modulators (SERMs)
CPT/HCPCS: 71045; 71275; 80048; 80076; 82550; 82553; 83690; 84443; 84484; 85025; 85652; 93005; 93041; 94760; 96374; 99284; J1885; Q9967

== ENCOUNTER 2025-01-19 08:34 | Day surgery (SDC) | payer OTHER ==
[2024-11-28] MEDS: ceFAZolin SOD 2 GM IV ONCE IV ONE (06:00)
[~2025-01-19] VITALS: Ht 185.4 cm; Wt 91.1 kg
[~2025-01-19 08:34] MED LIST changes: -FLOM0.4C39 PO; +MULTTAB61 PO; +OXYC1CAP2 PO; +TAMS-18 PO
[2025-01-19] MEDS ORDERED: ONDANSETRON 4MG 2ML VIAL As Ordered ONE (08:45)
[2025-01-19] MEDS ORDERED: ACETAMINOPHEN 1000MG/100ML IV BAG As Ordered ONE (08:45)
[2025-01-19] MEDS ORDERED: MIDAZOLAM INJ 2 MG/2 ML VIAL As Ordered ONE (08:45)
[2025-01-19] MEDS ORDERED: dexAMETHasone 4 MG/ML 1 ML VIAL As Ordered ONE (08:45)
[2025-01-19] MEDS ORDERED: ROCURONIUM BROMIDE 50MG/5ML VIAL As Ordered ONE (08:45)
[2025-01-19] MEDS ORDERED: KETOROLAC 30 MG/ML 1 ML VIAL As Ordered ONE (08:45)
[2025-01-19] MEDS ORDERED: LIDOCAINE 2% 100 MG/5 ML SDV (FOR ANES.) As Ordered ONE (08:45)
[2025-01-19] MEDS ORDERED: SUGAMMADEX SODIUM 500 MG/5 ML VIAL As Ordered ONE (08:45)
[2025-01-19] MEDS: FAMOTIDINE IV BAG 20 MG in IV 1 EA IV ONE (10:17)
[2025-01-19] MEDS: SCOPOLAMINE 1MG TRANSDERMAL PATCH TOP ONE (10:17)
[2025-01-19] MEDS ORDERED: LR 1,000 ML IV SCH ×2 (10:30→13:30)
[2025-01-19] MEDS: ceFAZolin SOD 2 GM IV ONCE IV ONE (11:12)
[2025-01-19] MEDS: HEPARIN SOD 5000 UNITS/ML 1 ML VIAL/SYRINGE SQ ONE (11:30)
[2025-01-19] MEDS ORDERED: PHENYLephrine 500MCG 5ML (100MCG/ML) SYRINGE As Ordered ONE (11:33)
[2025-01-19] MEDS ORDERED: HYDROMORPHONE HCL 0.5 MG/0.5 ML SYRINGE IV PRN (13:30)
[2025-01-19] MEDS ORDERED: ONDANSETRON 4MG 2ML VIAL IV PRN (13:30)
[2025-01-19 14:25] VITALS: BP 118/77; TEMP 97.2
[2025-01-19 15:05] VITALS: O2SAT 98
== END 2025-01-19 15:06 | disposition home or self-care (01) ==
LOC: M SDC 08:34
PROVIDERS: ATTEND Surgery
DX: K40.90 Unilateral inguinal hernia, without obstruction or gangrene, not specified as recurrent (principal); D17.6 Benign lipomatous neoplasm of spermatic cord; I25.10 Atherosclerotic heart disease of native coronary artery without angina pectoris; I25.2 Old myocardial infarction; K21.9 Gastro-esophageal reflux disease without esophagitis; Z79.899 Other long term (current) drug therapy; Z79.82 Long term (current) use of aspirin; Z85.46 Personal history of malignant neoplasm of prostate; F17.210 Nicotine dependence, cigarettes, uncomplicated; Z95.5 Presence of coronary angioplasty implant and graft
CPT/HCPCS: 49650; C1781; J0131; J0665; J0690; J1100; J1308; J1885; J2250; J2371; J2405; J3010; S2900

== ENCOUNTER 2025-02-02 15:44 | Emergency (ER) | payer OTHER ==
[~2025-02-02] VITALS: Ht 182.9 cm; Wt 92.3 kg
[2025-02-02 16:40] LABS: BASO # 0.1 10^3/uL (0.0-0.2); BASO % 1.0 % (0.0-1.0); EOS # 0.3 10^3/uL (0.0-0.5); EOS % 2.9 % (0.0-3.0); LYMPH # 4.2 10^3/uL (1.5-5.0); LYMPH % 41.7 % (24.0-44.0); MONO # 0.8 10^3/uL (0.0-0.8); MONO % 7.7 % (2.0-8.0); NEUTROPHILS # 4.6 10^3/uL (1.5-8.5); NEUTROPHILS % 46.5 % (36.0-66.0); PLATELET COUNT, AUTOMATED 264 10^3/uL (150-450)
[2025-02-02 16:43] LABS: KETONE, URINE AUTO RFX NEGATIVE (NEGATIVE); LEUKOCYTE ESTERASE UR AUTO RFX NEGATIVE (NEGATIVE); MUCUS, URINE RFX SMALL (NEGATIVE); NITRITE, URINE AUTO RFX NEGATIVE (NEGATIVE); RBC, URINE AUTO RFX 0 /HPF (0-3); SQUAM EPITHELIAL CELL UR AURFX 0 /HPF (0-6); WBC, URINE AUTO RFX 0 /HPF (0-3)
[2025-02-02 17:13] LABS: ALT/SGPT 32.0 U/L (7.0-40); AST/SGOT 28.0 U/L (<34); CALCIUM LEVEL 9.2 MG/DL (8.5-10.1); CARBON DIOXIDE LEVEL 26.0 MMOL/L (20-31); CHLORIDE LEVEL 107.0 MMOL/L (98-107); CREATININE FOR GFR 1.03 MG/DL (0.70-1.30); GLOMERULAR FILTRATION RATE 85.8 (>56); POTASSIUM SERUM 4.2 MMOL/L (3.5-5.1); SODIUM LEVEL 143.0 MMOL/L (136-145)
[2025-02-02] MEDS: KETOROLAC 30 MG/ML 1 ML VIAL IV ONE (18:23)
[2025-02-02] MEDS ORDERED: MELO15TA28 PO (18:25)
[2025-02-02] MEDS ORDERED: CYCL-707 PO (18:25)
[2025-02-02] MEDS ORDERED: PRED20TA PO (18:25)
[2025-02-02 18:39] VITALS: BP 121/78; TEMP 96.8; O2SAT 99
== END 2025-02-02 18:40 | disposition home or self-care (01) ==
LOC: M ED 15:44
DX: G89.29 Other chronic pain (principal); M54.50 Low back pain, unspecified; R10.30 Lower abdominal pain, unspecified; E78.5 Hyperlipidemia, unspecified; I25.2 Old myocardial infarction
CPT/HCPCS: 80048; 80076; 81001; 83690; 85025; 96374; 96375; 99284; J1885; J2919

== ENCOUNTER 2025-05-09 14:42 | Emergency (ER) | payer OTHER ==
[~2025-05-09] VITALS: Ht 185.4 cm; Wt 91.1 kg
[~2025-05-09 14:42] MED LIST changes: +CYCL-707 PO; +MELO15TA28 PO; +PRED20TA PO
[2025-05-09 15:40] LABS: BASO # 0.1 10^3/uL (0.0-0.2); BASO % 0.5 % (0.0-1.0); EOS # 0.2 10^3/uL (0.0-0.5); EOS % 1.7 % (0.0-3.0); LYMPH # 4.3 10^3/uL (1.5-5.0); LYMPH % 45.1 % (24.0-44.0); MONO # 0.9 10^3/uL (0.0-0.8); MONO % 9.3 % (2.0-8.0); NEUTROPHILS # 4.1 10^3/uL (1.5-8.5); NEUTROPHILS % 43.2 % (36.0-66.0); PLATELET COUNT, AUTOMATED 259 10^3/uL (150-450)
[2025-05-09 16:00] LABS: CALCIUM LEVEL 8.8 MG/DL (8.5-10.1); CARBON DIOXIDE LEVEL 27 MMOL/L (20-31); CHLORIDE LEVEL 109 MMOL/L (98-107); CK-MB VALUE MASS 1.5 NG/ML (<3.6); CREATININE FOR GFR 0.97 MG/DL (0.70-1.30); GLOMERULAR FILTRATION RATE > 90.0 (>56); POTASSIUM SERUM 4.0 MMOL/L (3.5-5.1); SODIUM LEVEL 142 MMOL/L (136-145)
[2025-05-09 16:01] LABS: CPK CREATINE PHOSPHOKINASE 188 U/L (46-171); MB/CK RELATIVE INDEX 0.79 (< OR =4)
[2025-05-09] MEDS: PANTOPRAZOLE 40MG VIAL IV ONE (16:03)
[2025-05-09] MEDS: ASPIRIN 81 MG CHEWABLE TABLET PO ONE (16:03)
[2025-05-09] MEDS: NITROGLYCERIN 0.4 MG SUBL TABLET SL PRN (16:03)
[2025-05-09 16:11] VITALS: BP 105/66
[2025-05-09] MEDS: ACETAMINOPHEN 325 MG TAB PO ONE (16:20)
[2025-05-09] MEDS ORDERED: ISOVUE-370 76% 100 ML VIAL As Ordered ONE (16:23)
[2025-05-09] MEDS: NS 500 ML IV ONE (17:40)
[2025-05-09 17:41] LABS: CK-MB VALUE MASS 1.4 NG/ML (<3.6)
[2025-05-09 17:42] LABS: CPK CREATINE PHOSPHOKINASE 157 U/L (46-171); MB/CK RELATIVE INDEX 0.89 (< OR =4)
[2025-05-09] MEDS: NS (Normal Saline) 0.9% 1,000 ML IV ONE (18:45)
[2025-05-09 20:28] VITALS: BP 110/74; TEMP 98.9; O2SAT 99
== END 2025-05-09 20:30 | disposition home or self-care (01) ==
LOC: M ED 14:42
DX: R07.9 Chest pain, unspecified (principal); I25.119 Atherosclerotic heart disease of native coronary artery with unspecified angina pectoris; I25.2 Old myocardial infarction; E78.5 Hyperlipidemia, unspecified; C61 Malignant neoplasm of prostate; F17.210 Nicotine dependence, cigarettes, uncomplicated; Z79.1 Long term (current) use of non-steroidal anti-inflammatories (NSAID); Z79.899 Other long term (current) drug therapy; Z79.810 Long term (current) use of selective estrogen receptor modulators (SERMs)
CPT/HCPCS: 71045; 71275; 80048; 82550; 82553; 84484; 85025; 93005; 93041; 94760; 96361; 96374; 99285; J2470; Q9967